=== PATIENT | male | born 1980 | race Two or more races ===

== ENCOUNTER 2021-05-31 15:27 | Outpatient (REF) | payer OTHER, SELFPAY ==
--- NOTE | ~2021-05-31 | XR_ITS ---
EXAMINATION: XR CHEST CLINICAL INFORMATION: Chronic cough. COMPARISON: None TECHNIQUE: 2 views of the chest were obtained. FINDINGS: No acute finding. No infiltrate. No effusion. The cardiac silhouette is within normal limits. There is no infiltrate. The hilar structures do not appear pathologically enlarged. XR/XR chest 2V IMPRESSION: No acute finding.
== END 2021-05-31 15:28 | disposition home or self-care (01) ==
LOC: HO.XRAY 15:27
PROVIDERS: PCP Internal Medicine; Visit Provider Nurse Practitioner Family
DX: R05.3 Chronic cough (principal); Z87.09 Personal history of other diseases of the respiratory system
CPT/HCPCS: 71046

== ENCOUNTER 2022-09-02 07:51 | Outpatient (REF) | payer OTHER, SELFPAY ==
--- NOTE | ~2022-09-02 | XR_ITS ---
EXAMINATION: XR SHOULDER, RIGHT CLINICAL INFORMATION: Pain in right shoulder COMPARISON: None available. TECHNIQUE: AP external rotation, Grashey, scapular Y, and axillary views of the right shoulder. FINDINGS: There is loss of glenohumeral and AC joint space with moderate periarticular spurring. No visible acute fracture, dislocation or subluxation seen. The soft tissues are normal. XR/XR shoulder RT min 2V IMPRESSION: Moderate degenerative arthritic changes right shoulder. No acute fracture or dislocation.
[2022-09-02 08:34] LABS: Hematocrit 44.8 % (42.0-52.0); Hemoglobin 14.5 g/dl (14.0-18.0); Mean Corpuscular HGB Conc 32.4 g/dl (31.0-36.0); Mean Corpuscular Volume 92.6 fL (80.0-98.0); Mean Platelet Volume 9.6 fL (9.4-12.4); Platelet Count 247 X10*3/uL (160-400); Red Blood Count 4.84 X10*6/uL (4.60-5.80); Red Cell Distribution Width 12.1 % (11.0-16.0)
[2022-09-02 09:41] LABS: Alanine Aminotransferase 32 U/L (0-40); Albumin Level 4.4 g/dL (3.5-5.0); Alkaline Phosphatase 80 U/L (39-117); Anion Gap 13 (12-20); Aspartate Amino Transferase 26 U/L (5-37); Bilirubin Total 0.6 mg/dL (0.0-1.0); Blood Urea Nitrogen 20 mg/dL (9-16); Calcium 9.3 mg/dL (8.4-10.2); Carbon Dioxide 24 mmol/L (22-29); Chloride 108 mmol/L (96-108); Cholesterol 141 mg/dL; Estimated Glomerular Filt Rate > 60; Glucose Random 113 mg/dL (60-115); HDL Cholesterol 33 mg/dL; Potassium 4.7 mmol/L (3.3-5.1); Sodium 140 mmol/L (135-145); Total Protein 6.8 g/dL (6.5-8.0)
[2022-09-02 09:42] LABS: TSH reflex Free T4 2.08 uIU/mL (0.32-4.0)
[2022-09-06 15:46] LABS: Triglycerides 73 mg/dL
[2022-09-06 15:47] LABS: LDL Cholesterol Calculated 94 mg/dl
== END 2022-09-02 07:52 | disposition home or self-care (01) ==
LOC: HO.LAB 07:51
PROVIDERS: PCP Nurse Practitioner Family; Visit Provider Nurse Practitioner Family
DX: Z13.220 Encounter for screening for lipoid disorders (principal); Z13.0 Encounter for screening for diseases of the blood and blood-forming organs and certain disorders involving the immune mechanism; Z13.29 Encounter for screening for other suspected endocrine disorder; M25.511 Pain in right shoulder
CPT/HCPCS: 36415; 73030; 80053; 80061; 84443; 85027

== ENCOUNTER → 2022-10-11 08:51 | Outpatient (BNVA) | payer OTHER, SELFPAY | PROVIDERS: PCP Nurse Practitioner Family; Visit Provider Physician Assistant | DX: Z01.818 Encounter for other preprocedural examination (principal); R19.5 Other fecal abnormalities | CPT/HCPCS: 99202 ==

== ENCOUNTER 2022-11-12 15:23 | Emergency (ER) | payer OTHER, SELFPAY ==
[2022-11-12 16:43] VITALS: BP 135/73; PULSE 69; RESP 18; TEMP 36.6; O2SAT 96; BMI 37.8
--- NOTE | 2022-11-12 16:47 | ED.GENADULT ---
HPI - General Adult General Chief complaint: Dental/Oral Stated complaint: Tooth pain right side Time Seen by Provider: 11/12/22 16:47 Source: patient Mode of arrival: ambulatory Limitations: no limitations History of Present Illness HPI narrative: 42 yold male presents to the ED right upper molar pain for the past couple of days. patient denies any facial swelling, neck swelling, chest pain, shortness of breath, fever, chills, or trouble swallowing liquid/food. Related Data Home Medications Medication Instructions Recorded Confirmed ibuprofen 100 mg tablet 200 mg PO QID PRN 08/18/22 08/18/22 Previous Rx's Medication Instructions Recorded albuterol sulfate 90 mcg/actuation 1 inh inhalation Q6H PRN shortness 05/31/21 aerosol inhaler of breath or wheezing #8.5 grams bisacodyl 5 mg tablet,delayed 20 mg PO ONCE colonoscopy prep 1 10/11/22 release (Dulcolax (bisacodyl)) day #4 tabs methylcellulose (laxative) 500 mg 500 mg PO BID #60 tabs 10/11/22 tablet (Citrucel) polyethylene glycol 3350 17 238 g PO ONCE PRN laxative effect 10/11/22 gram/dose oral powder (Miralax) 1 day #238 grams amoxicillin 875 mg-potassium 1 tab PO Q12H 10 days #20 tabs 11/12/22 clavulanate 125 mg tablet naproxen 500 mg tablet 500 mg PO BID PRN pain 7 days #14 11/12/22 tabs Allergies Allergy/AdvReac Type Severity Reaction Status Date / Time No Known Allergies Allergy Verified 10/11/22 09:02 Review of Systems Review of Systems: RIght upper molar cracked tooth Yes all other systems are reviewed and are negative [facility] Past Medical History Medical History (Updated 11/12/22 @ 16:52 by DEACON Elliott) Right shoulder pain Surgical History History of appendectomy Family History Family History Mother Diabetes Father Diabetes H/O heart surgery Social History Social History Household Members: Spouse Housing: Apartment Alcohol intake: current Alcohol intake frequency: a few times a month Alcohol type: beer and hard liquor Patient Tobacco Use Status: Former Tobacco user Quit Date: 2011 Tobacco use type: Cigarette e-Cigarette/Vaping Use: Never Used Second Hand Smoke Exposure: No Advance Directives: No Advance Directives Information Provided: No service: No Current occupational status: employed Current occupational exposures/hazards: No Cognitive needs: No Hearing needs: No Vision needs: No Physical Exam ED Vital Signs: Vital Signs - 24 hr 11/12/22 16:43 Temperature 98 F Pulse Rate 69 Respiratory Rate 18 Blood Pressure 135/73 Pulse Oximetry 96 Oxygen Delivery Method Room Air BMI result Body Mass Index 37.8 Const General: cooperative, healthy appearing, comfortable, no acute distress, well developed, alert, awake and Physically active Orientation/consciousness: oriented to person, oriented to place, oriented to time and patient oriented x3 HENMT Head: Yes normal to inspection, Yes No palpable skull fracture present, Yes normocephalic, Yes atraumatic and No abrasion Ears: hearing grossly normal bilaterally, external ears normal, TM's normal bilaterally, TM normal on the right, TM normal on the left, mastoids normal and no periauricular adenopathy Teeth image: 1. cracked. tenderness on palpation negative for signs of trisums. negative for gum swelling, drooling, or active pus drainage. Throat: Yes posterior oropharynx normal, Yes tonsils normal and Yes uvula midline Eyes General: appearance normal, both eyes and all related structures Neck Neck: Yes normal visual inspection, Yes full ROM, Yes no lymphadenopathy, Yes no meningeal signs, Yes trachea midline, Yes supple, No anterior neck swelling and No tender Chest Chest palpation & inspection: normal inspection of the chest and normal palpation of entire chest wall Resp Effort & Inspection: normal respiratory effort and able to speak in complete sentences Auscultation: clear to auscultation bilaterally Cardio Jugular venous distension: no JVD Heart sounds: S1 normal heart sound present and S2 normal heart sound present GI Inspection: Yes normal to inspection and No abdominal wall ecchymosis Palpation (GI): Soft to palpation, not firm, nontender, no guarding and not rigid General: No CVA tenderness and Yes no CVA tenderness Back/Spine/Pelvis Back: no CVA tenderness, No CVA tenderness and No back tenderness Skin General skin exam: no rashes or lesions noted and elasticity normal Neuro General: oriented to person, oriented to place, oriented to time, patient oriented x3, gait normal, tone normal, moves all extremities, Normal light touch and pain sensation, no meningeal signs, no focal motor deficits, CN's II-XI intact bilaterally and normal sensation to monofilament Extrem General: Yes normal to inspection and Yes full ROM Psych Appearance: grossly normal and well kempt Course Course Course Narrative: RmE: 42 yol male presents to the ED for Right upper molar pain for couple of days. patient denies any facial swelling, neck swelling, drooling, fever, chills, chest pain, or shortness of breath. Patient denies any new trauma. tooth has filling and is cracked Medical Decision Making Medical Decision Making MDM Narrative: 42 yold male presents to the ED for RIght upper molar cracked tooth that is painful. Patient denies any facial swelling, neck swelling, chest pain, shortness of breath, fever, chills, or recent trauma. Patient discharged with antibiotics and will follow up with Dentists Differential Diagnosis Differential Diagnoses: The differential diagnosis associated with the presentation includes (tooth infection, dental abscess, ludgwig agina, retropharyngeal abscess) Admission/Observation Consideration of admission/observation: Escalation of care including admission/observation considered Tests considered The following testing was considered but not selected: CT neck Prescription Management I considered prescription management with: Pain Medication and Antibiotic Discharge Plan Discharge Clinical Impression: Toothache, Cracked tooth Patient Disposition: Home, Self-Care Instructions: Toothache (ED) Additional Instructions: Regrese al servicio de urgencias de inmediato por cualquier hinchaz?n de la becky/ancelmo, babeo, cambio de voz, incapacidad para tragar l?quidos/alimentos s?lidos, fiebre, escalofr?os, dolor en el pecho, dificultad para respirar o cualquier otro s?ntoma preocupante. por favor kostas un seguimiento con los dentistas y el PCP. Prescriptions: New amoxicillin-pot clavulanate 875-125 mg tablet 1 tab PO Q12H 10 Days Qty: 20 0RF naproxen 500 mg tablet 500 mg PO BID PRN (Reason: pain) 7 Days Qty: 14 0RF No Action albuterol sulfate 90 mcg/actuation HFA aerosol inhaler 1 inh inhalation Q6H PRN (Reason: shortness of breath or wheezing) Qty: 8.5 0RF Tenivac (PF) 5 Lf unit- 2 Lf unit/0.5mL suspension 0.5 ml IM ONCE Qty: 0.5 0RF ibuprofen 100 mg tablet 200 mg PO QID PRN bisacodyl [Dulcolax (bisacodyl)] 5 mg tablet,delayed release (DR/EC) 20 mg PO ONCE 1 Days Qty: 4 0RF Rx Instructions: Take 4 tablets by mouth at 12:00pm the day before your procedure. polyethylene glycol 3350 [Miralax] 17 gram/dose powder 238 g PO ONCE PRN (Reason: laxative effect) 1 Days Qty: 238 0RF Rx Instructions: Take as directed by mouth the day before your procedure. Citrucel 500 mg tablet 500 mg PO BID Qty: 60 5RF Stand Alone Forms: Work/School Release Interventions: ED Discharge Assessment Last Done: 11/12/22 17:01 Discharge Date/Time: 11/12/22 17:01 Print Language: Beninese
== END 2022-11-12 17:01 | disposition home or self-care (01) ==
PROVIDERS: Emergency Provider Internal Medicine; PCP Internal Medicine
DX: K03.81 Cracked tooth (principal); K08.89 Other specified disorders of teeth and supporting structures; Z87.891 Personal history of nicotine dependence; Z79.899 Other long term (current) drug therapy
CPT/HCPCS: 99282

== ENCOUNTER 2023-01-15 11:15 | Outpatient (AMB) | payer OTHER, SELFPAY ==
[2023-01-15 12:01] VITALS: BP 120/60; PULSE 80; TEMP 36.3; O2SAT 97; BMI 40.6
--- NOTE | 2023-01-15 12:01 | AM.OFFWIN_ITS ---
Intake Vital Signs 01/15/23 12:01 Height 5 ft 4 in Weight 236 lb 6 oz BMI 40.6 BP 120/60 Blood Pressure Location Rt brachial Position Sitting Pulse 80 Pulse Source Pulse Oximeter Temp 97.4 F Temp Source Temporal Artery Scan Pulse Oximetry (%) 97 Oxygen Delivery Method Room Air Intake Visit Reasons: EST/right eye swelling Intake Note: Pt is here c/o right eye swelling for the last 7 days. Pt states when he initially wakes up it is hard for him to open his eye. Pt also states he has discharge coming from his right eye. Patient Tobacco Use Status: Former Tobacco user Quit Date: 2011 Allergies No Known Allergies Allergy (Verified 01/19/23 16:10) Medication List - Last Reconciled 01/19/23 by Mich Schwartz MD albuterol sulfate 90 mcg/actuation 1 inh inhalation Q6H PRN amoxicillin-pot clavulanate 875-125 mg 1 tab PO Q12H 10 days bisacodyl (Dulcolax (bisacodyl)) 20 mg (4 x 5 mg) PO ONCE 1 day erythromycin 0.5 inches ophthalmic (eye) TID ibuprofen 200 mg PO QID PRN methylcellulose (laxative) (Citrucel) 500 mg PO BID naproxen 500 mg PO BID PRN 14 days polyethylene glycol 3350 (Miralax) 238 grams PO ONCE PRN 1 day Do you need a note to return to daycare/school/sports/work: Yes HPI EST/right eye swelling HPI Details 42-year-old male presents to the office for a sick visit. Patient is complaining of redness and irritation in the right. Mucoid discharge present. No fevers or chills. [facility] Medical History (Updated 01/19/23 @ 16:13 by Mich Schwartz MD) Right shoulder pain Surgical History History of appendectomy Family History Mother Diabetes Father Diabetes H/O heart surgery Social History Household Members: Spouse Housing: Apartment Alcohol intake: current Alcohol intake frequency: a few times a month Alcohol type: beer and hard liquor Patient Tobacco Use Status: Former Tobacco user Quit Date: 2011 Tobacco use type: Cigarette e-Cigarette/Vaping Use: Never Used Second Hand Smoke Exposure: No service: No Current occupational status: employed Current occupational exposures/hazards: No Cognitive needs: No Hearing needs: No Vision needs: No Physical Exam Vital Signs: Last Vital Signs Temp 97.4 F 01/15/23 12:01 Pulse 80 01/15/23 12:01 BP 120/60 01/15/23 12:01 Pulse Ox 97 01/15/23 12:01 Oxygen Delivery Method Room Air 01/15/23 12:01 BMI result Body Mass Index 40.6 Const General: cooperative and healthy appearing Nutritional Appearance: well nourished Orientation/consciousness: patient oriented x3 Limitations: no limitations HEENT Head: Yes normal to inspection Eyes Other: Right eye: Conjunctival congestion. Corneas clear. General: appearance normal, both eyes and all related structures Neck Neck: Yes normal visual inspection Chest Chest palpation & inspection: normal palpation of entire chest wall Resp Effort & Inspection: normal respiratory effort Neuro General: patient oriented x3 Assessment & Plan Assessment & Plan (1) Conjunctivitis, right eye: Code(s): H10.9 - Unspecified conjunctivitis Qualifiers: Conjunctivitis type: acute Acute conjunctivitis type: unspecified Q ualified Code(s): H10.31 - Unspecified acute conjunctivitis, right eye Plan: Antibiotic ointment prescribed. If symptoms do not improve to follow-up here. Medications: New erythromycin 0.5 inches ophthalmic (eye) TID 1 g 0RF Changed From naproxen 500 mg PO BID 7 days PRN 14 tabs 0RF pain To naproxen 500 mg PO BID 14 days PRN 28 tabs 0RF pain Coding Level of Care Code Est Pt Level 3 (28928) Diagnoses Acute conjunctivitis of right eye, unspecified acute conjunctivitis type H10.31 Conjunctivitis type: acute Acute conjunctivitis type: unspecified
== END 2023-01-15 12:26 | disposition home or self-care (01) ==
PROVIDERS: PCP Internal Medicine; Visit Provider Internal Medicine
DX: H10.31 Unspecified acute conjunctivitis, right eye (principal)
CPT/HCPCS: 99213

== ENCOUNTER 2023-01-30 15:42 | Outpatient (AMB) | payer OTHER, SELFPAY ==
[2023-01-30 15:43] VITALS: BP 122/80; PULSE 73; O2SAT 97; BMI 40.5
--- NOTE | 2023-01-30 15:43 | MHC.PC.OV ---
Vital Signs 01/30/23 15:43 Height 5 ft 4 in Weight 236 lb BMI 40.5 BP 122/80 Blood Pressure Location Lt brachial Position Sitting Pulse 73 Pulse Source Pulse Oximeter Temp Source Skin Pulse Oximetry (%) 97 Oxygen Delivery Method Room Air Intake Visit Reasons: shoulder pain Intake Note: pt states jail right shoulder pain and numbness radiating down towards arm Surgical Oncologist Required: No Allergies No Known Allergies Allergy (Verified 01/30/23 15:51) Medication List - Last Reconciled 01/30/23 by STEVE Bangura albuterol sulfate 90 mcg/actuation 1 inh inhalation Q6H PRN bisacodyl (Dulcolax (bisacodyl)) 20 mg (4 x 5 mg) PO ONCE 1 day erythromycin 0.5 inches ophthalmic (eye) TID ibuprofen 200 mg PO QID PRN methylcellulose (laxative) (Citrucel) 500 mg PO BID naproxen 500 mg PO BID PRN 14 days polyethylene glycol 3350 (Miralax) 238 grams PO ONCE PRN 1 day Tobacco use date assessed: 01/30/23 Dental Screening Dental Screen Date: 01/30/23 Did you have a dental visit in the last 12 months?: Yes Did you have a dental problem in the last 6 months where you did not have access to dental care?: No Was dental information given to patient?: Patient has dentist HPI shoulder pain HPI Details Patient is a 42-year-old male who presents today with right shoulder pain since age 23[address] Dumas. Patient did have right shoulder x-ray done which showed moderate degenerative changes. Patient reports that right shoulder pain radiate down to his elbow area with intermittent numbness in his right arm, reports that pain is intermittent as well. Pain is worse with right arm movement and when sleeping on the right side. He reports naproxen with mild helping pain. Patient works at [employer] and he moves heavy things. In addition, patient reports right hand eczema and he was encouraged to try uhir-ygy-beyysip cortisone cream as needed. 09/2022 XR/XR shoulder RT min 2V IMPRESSION: Moderate degenerative arthritic changes right shoulder. No acute fracture or dislocation. [facility] Medical History Right shoulder pain Surgical History History of appendectomy Family History Mother Diabetes Father Diabetes H/O heart surgery Social History Household Members: Spouse Housing: Apartment Alcohol intake: current Alcohol intake frequency: a few times a month Alcohol type: beer and hard liquor Patient Tobacco Use Status: Former Tobacco user Quit Date: 2011 Tobacco use type: Cigarette e-Cigarette/Vaping Use: Never Used Second Hand Smoke Exposure: No service: No Current occupational status: employed Current occupational exposures/hazards: No Cognitive needs: No Hearing needs: No Vision needs: No Questionnaire Thrive Questionnaire Date Thrive assessed: 08/18/22 AUDIT C Alcohol Use Questionnaire (AUDIT-C) 1. How often do you have a drink containing alcohol?: Monthly or less 2. How many drinks containing alcohol do you have on a typical day when you are drinking?: 1 or 2 3. How often do you have six or more drinks on one occasion?: Never Total Score: 1 Score Reviewed/Action Taken: No MARU-7 AMB Questionnaire MARU-7 Date MARU - 7 assessed: 08/18/22 Source: Developed by Drs. Emmett Jasso, Kia Goyal, Ruslan Edmonds and colleagues, with an educational dean from [employer]. Review of Systems Const Denies body aches, Denies chills, Denies fever(s) and Denies headache(s) ENT Denies dizziness, Denies otalgia, Denies headache(s), Denies nasal discharge, Denies sinus pain and Denies sore throat Card Denies chest pain, Denies edema, Denies lightheadedness and Denies dyspnea Resp Denies dyspnea and Denies wheezing GI Denies abdominal pain Denies dysuria Musc Reports as per HPI, Denies myalgias, Reports arthralgias, Reports numbness and Denies tingling Skin/Breast Denies rash Neuro Denies dizziness, Denies headache(s), Reports numbness and Denies tingling Aller/Immun Denies wheezing Physical exam (Primary Care) Vital Signs: Last Vital Signs Pulse 73 01/30/23 15:43 BP 122/80 01/30/23 15:43 Pulse Ox 97 01/30/23 15:43 Oxygen Delivery Method Room Air 01/30/23 15:43 BMI result Body Mass Index 40.5 Tobacco/Smoking Status: Tobacco use Status Tobacco use date assessed 01/30/23 01/30/23 15:50 Patient Tobacco Use Status Former Tobacco user 01/30/23 15:50 Tobacco use type Cigarette 01/30/23 15:50 e-Cigarette/Vaping Use Never Used 01/30/23 15:50 Thrive Assessment: Date of Thrive Assessment Date Thrive assessed 08/18/22 01/30/23 15:50 Const General: cooperative and no acute distress Orientation/consciousness: patient oriented x3 HENMT Head: Yes normocephalic and Yes atraumatic Throat: Yes posterior oropharynx normal Eyes General: appearance normal, both eyes and all related structures Neck Neck: Yes normal visual inspection and Yes full ROM Resp Effort & Inspection: normal respiratory effort and able to speak in complete sentences Auscultation: clear to auscultation bilaterally, no crackles, no rales, no rhonchi and no wheezes Cardio Rate: regular rate Rhythm: regular rhythm Heart sounds: S1 normal heart sound present and S2 normal heart sound present GI Auscultation: normal bowel sounds Skin General skin exam: no rashes or lesions noted Neuro General: patient oriented x3 Gait exam (Neuro): Normal gait present Extrem General: No edema Right upper extremity: shoulder/upper arm Details: abnormal ROM (Pain with range of motion); no tenderness, no swelling, no crepitus and no deformity Assessment and Plan Assessment & Plan (1) Right shoulder pain: Code(s): M25.511 - Pain in right shoulder Plan: Right shoulder with arthritis. Patient is to continue naproxen b.i.d. p.r.n.. Will provide patient with lidocaine patch daily p.r.n.. Will refer to physical therapy. Also refer to Orthopedics for an evaluation and treatment. Patient agreed with the plan. Orders: Orders PT Evaluation and Treatment Today M25.511 - Pain in right shoulder Referrals Orthopedics Referral M25.511 - Pain in right shoulder Medications: New lidocaine 4% (Aspercreme (lidocaine)) 1 patch topical DAILY PRN 30 ea 0RF pain M25.511 - Pain in right shoulder Coding Level of Care Code Est Pt Level 3 (42806) Diagnoses Right shoulder pain M25.661
== END 2023-01-30 16:02 | disposition home or self-care (01) ==
PROVIDERS: PCP Internal Medicine; Visit Provider Nurse Practitioner Family
DX: M25.511 Pain in right shoulder (principal)
CPT/HCPCS: 99213

== ENCOUNTER 2023-02-26 13:25 | Outpatient (AMB) | payer OTHER, SELFPAY ==
--- NOTE | 2023-02-26 13:39 | A.OFFVIS_ITS ---
Intake Vital Signs 02/26/23 13:45 Height 5 ft 4 in Weight 230 lb BMI 39.5 Intake Visit Reasons: Research Anthropologist- Pain in right shoulder Intake Note: Surjit 42 yr old right hand dominant male presents today for a new patient visit for his right shoulder. States pain presents for the last 10 yrs s/ getting detained. States he has had pain since then. States he has never been seen for his right shoulder until recently. Reports pain is mainly on anterior aspect of shoulder, radiates to his bicep and is painful to lift arm up. 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 Denies therapy or injection. Allergies No Known Allergies Allergy (Verified 02/26/23 13:43) HPI Research Anthropologist- Pain in right shoulder HPI Details 42-year-old right hand dominant male who presents to the office today for evaluation of right shoulder pain s/p getting detained for about 10 years. He states he has pain in the anterior aspect of his shoulder which radiates to his bicep. His pain is aggravated with lifting his arm up and at night. He denies any therapy or injection. 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 He does not have a history of diabetes. 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 Current occupational exposures/hazards: No Cognitive needs: No Hearing needs: No Vision needs: No Review of Systems Const All systems reviewed & are unremarkable except as noted in HPI and below Physical Exam Vital Signs: BMI result Body Mass Index 39.5 Const General: cooperative, healthy appearing, comfortable, no acute distress, well developed and alert Orientation/consciousness: patient oriented x3 HEENT Head: Yes normal to inspection, Yes normocephalic and Yes atraumatic Eyes General: appearance normal, both eyes and all related structures Resp Effort & Inspection: normal respiratory effort and able to speak in complete sentences Cardio Rate: regular rate Peripheral pulses: Peripheral pulses 2+ throughout GI Palpation (GI): Soft to palpation Skin Lesions: no lesions Rashes: no rashes Neuro General: patient oriented x3 Extrem Other: Right shoulder normal to inspection. Tenderness over the bicipital groove and along the deltoid region of the shoulder. Forward flexion to 175, external rotation to 90, internal rotation to S1. 5/5 RTC strength. Positive Brock and Levy's. NVI. Office Procedures Joint Injection/Drain Joint Injection/Drain Primary Site: right shoulder Prep: site was prepped using aseptic technique, ethochloride spray was applied and injection warnings given Injected: 80 mg of, DepoMedrol, with 8 mL of, 1% plain lidocaine and in the subcromial space Approach Used: posterolateral Procedure: The patient tolerated the procedure well and there was some relief with the local anesthesia Coding 70686 - Glenohumeral/Tronchanteric Bursa/Intraarticular Procedure code (CPT) selection complete Results Reviewed Results Reviewed: 02/26/23 14:17 Lidocaine HCl 2 % MPF [Xylocaine 2 % MPF] 5 ml .ROUTE .STK-MED ONE 02/26/23 14:18 methylPREDNISolone acetate [DEPO-MedroL] 80 mg .ROUTE .STK-MED ONE Assessment & Plan Assessment & Plan (1) Osteoarthritis of right shoulder: Code(s): M19.011 - Primary osteoarthritis, right shoulder Qualifiers: Osteoarthritis type: primary Qualified Code(s): M19.011 - Primary osteoarthritis, right shoulder (2) Tendinitis of right rotator cuff: Code(s): M75.81 - Other shoulder lesions, right shoulder Plan We discussed options today which include steroid injection. They did consent to move forward with the right shoulder injection, which was tolerated well. I recommended rest, ice and elevation and OTC anti-inflammatories PRN for discomfort. He was also given a course of physical therapy in the office today. If symptoms persist or worsens over the next 6-8 weeks, patient will contact the office, otherwise follow-up as needed. Orders: Orders PT Evaluation and Treatment Today M19.011 - Primary osteoarthritis, right shoulder, M75.81 - Other shoulder lesions, right shoulder Patient Instructions: Scribed for Josiah Quinn PA-C, by Harvinder Edmondson certified medical coding specialist, on 02/26/2023 at 1:45 PM EST. Josiah Buck PA-C, have personally reviewed and agree with the information entered by the scribe. Coding Level of Care Code New Pt Level 3 (96894) Diagnoses Primary osteoarthritis of right shoulder M19.011 Osteoarthritis type: primary Tendinitis of right rotator cuff M75.81 CPT Codes Coding - Joint 7: 17616 - Glenohumeral/Tronchanteric Bursa/Intraarticular ([id number])
[2023-02-26 13:45] VITALS: BMI 39.5
== END 2023-02-26 14:34 | disposition home or self-care (01) ==
PROVIDERS: PCP Internal Medicine; Visit Provider Physician Assistant
DX: M19.011 Primary osteoarthritis, right shoulder (principal); M75.81 Other shoulder lesions, right shoulder
CPT/HCPCS: 20610; 99203

== ENCOUNTER → 2023-02-26 13:25 | Outpatient (BNVA) | payer OTHER, SELFPAY | PROVIDERS: PCP Internal Medicine; Visit Provider Physician Assistant | DX: M19.011 Primary osteoarthritis, right shoulder (principal); M75.81 Other shoulder lesions, right shoulder | CPT/HCPCS: 20610; 99202; J1040 ==

== ENCOUNTER 2023-04-11 13:20 | Outpatient (AMB) | payer OTHER, SELFPAY ==
--- NOTE | 2023-04-11 13:30 | MHC.OFFVIS ---
Intake Intake Visit Reasons: ov- right shoulder pain Intake Note: Surjit 42 yr old right hand dominant male presents today for a new patient visit for his right shoulder, last injection 02/26/23. Patient reports his injection gave him 2 weeks of relief. PT hasn't contacted him. Allergies No Known Allergies Allergy (Verified 04/11/23 13:35) Medication List - Last Reconciled 04/11/23 by Josiah Quinn PA-C albuterol sulfate 90 mcg/actuation 1 inh inhalation Q6H PRN bisacodyl (Dulcolax (bisacodyl)) 20 mg (4 x 5 mg) PO ONCE 1 day erythromycin 0.5 inches ophthalmic (eye) TID ibuprofen 200 mg PO QID PRN lidocaine 4% (Aspercreme (lidocaine)) 1 patch topical DAILY PRN methylcellulose (laxative) (Citrucel) 500 mg PO BID naproxen 500 mg PO BID PRN 14 days polyethylene glycol 3350 (Miralax) 238 grams PO ONCE PRN 1 day HPI ov- right shoulder pain HPI Details 43-year-old right hand dominant male who returns to the office today for a follow-up of right shoulder pain. He states he has pain and swelling in his shoulder which is aggravated with lifting. He also c/o his shoulder locking while sleeping and pain in his elbow with making a fist. He had his last injection on 02/26/23 which provided him relief for about 2 weeks. He has not yet started with physical therapy. 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 Current occupational exposures/hazards: No Cognitive needs: No Hearing needs: No Vision needs: No Review of Systems Const All systems reviewed & are unremarkable except as noted in HPI and below Physical Exam Const General: cooperative, healthy appearing, comfortable, no acute distress, well developed and alert Orientation/consciousness: patient oriented x3 HEENT Head: Yes normal to inspection, Yes normocephalic and Yes atraumatic Eyes General: appearance normal, both eyes and all related structures Resp Effort & Inspection: normal respiratory effort and able to speak in complete sentences Cardio Rate: regular rate Peripheral pulses: Peripheral pulses 2+ throughout GI Palpation (GI): Soft to palpation Skin Lesions: no lesions Rashes: no rashes Neuro General: patient oriented x3 Extrem Other: Right shoulder normal to inspection. Tenderness over the bicipital groove and along the deltoid region of the shoulder. Forward flexion to 100, external rotation to 90, internal rotation to S1. Mild pain with RTC strength testing. Positive Brock and Crouse's. NVI. Assessment & Plan Assessment & Plan (1) Tendinitis of right rotator cuff: Code(s): M75.81 - Other shoulder lesions, right shoulder (2) Osteoarthritis of right shoulder: Code(s): M19.011 - Primary osteoarthritis, right shoulder Qualifiers: Osteoarthritis type: primary Qualified Code(s): M19.011 - Primary osteoarthritis, right shoulder Plan An MRI of the right shoulder has been ordered to further evaluate integrity of the RTC. An updated order for physical therapy has also placed in the office today. I stressed the importance of contacting the office if he does not hear from them. He will follow-up once the scan is complete. Orders: Orders MR shoulder RT wo con Today M19.011 - Primary osteoarthritis, right shoulder, M75.81 - Other shoulder lesions, right shoulder Patient Instructions: Scribed for Josiah Quinn PA-C, by Harvinder Edmondson medical lab tech instructor, on 04/11/2023 at 1:45 PM EST. Josiah Bcuk PA-C, have personally reviewed and agree with the information entered by the scribe. Coding Level of Care Code Est Pt Level 3 (75252) Diagnoses Tendinitis of right rotator cuff M75.81 Primary osteoarthritis of right shoulder M19.011 Osteoarthritis type: primary
== END 2023-04-11 13:55 | disposition home or self-care (01) ==
PROVIDERS: PCP Internal Medicine; Visit Provider Physician Assistant
DX: M75.81 Other shoulder lesions, right shoulder (principal); M19.011 Primary osteoarthritis, right shoulder
CPT/HCPCS: 99213

== ENCOUNTER → 2023-04-11 13:20 | Outpatient (BNVA) | payer OTHER, SELFPAY | PROVIDERS: PCP Internal Medicine; Visit Provider Physician Assistant | DX: M75.81 Other shoulder lesions, right shoulder (principal); M19.011 Primary osteoarthritis, right shoulder | CPT/HCPCS: 99212 ==

== ENCOUNTER 2023-05-14 12:02 | Day surgery (SDC) | payer OTHER, SELFPAY ==
[2023-05-14 13:27] VITALS: BP 129/76; PULSE 56; RESP 16; TEMP 36.3; O2SAT 97; BMI 39.5
--- NOTE | 2023-05-14 14:09 | HO.ANESPROP2 ---
[facility] Active Problems Active Problems: All Active Problems (Updated 02/26/23 @ 14:54 by Josiah Quinn PA-C) Tendinitis of right rotator cuff (Acute) Osteoarthritis of right shoulder (Acute) Conjunctivitis, right eye (Acute) Change in consistency of stool (Acute) Encounter for screening colonoscopy (Acute) Right shoulder pain (Acute) History of asthma (Acute) Chronic cough (Acute) Physical exam (Acute) Past Medical History Medical History Right shoulder pain Family History Family History Mother Diabetes Father Diabetes H/O heart surgery Surgical History Surgical History History of appendectomy History of Problems with Anesthesia: No Social History Social History Household Members: Spouse Housing: Apartment Alcohol intake: current Alcohol intake frequency: a few times a month Alcohol type: beer and hard liquor Patient Tobacco Use Status: Former Tobacco user Quit Date: 2011 Tobacco use type: Cigarette e-Cigarette/Vaping Use: Never Used Second Hand Smoke Exposure: No Use of substances other than those prescribed or required for medical reasons: No Are you DNR?: No Advance Directives: No Advance Directives Information Provided: Yes service: No Current occupational status: employed 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 Current occupational exposures/hazards: No Cognitive needs: No Hearing needs: No Vision needs: No Meds Allergies Allergy/AdvReac Type Severity Reaction Status Date / Time No Known Allergies Allergy Verified 04/11/23 13:35 Home Medications Medication Instructions Recorded Confirmed Last Taken Type ibuprofen 100 mg tablet 200 mg PO QID PRN Pain, Moderate 08/18/22 04/11/23 05/07/23 History Exam Height,Weight and Vital Signs: Height 5 ft 4 in Weight 104.326 kg Last Vital Signs Temp 97.4 F 05/14/23 13:27 Pulse 56 05/14/23 13:27 Resp 16 05/14/23 13:27 BP 129/76 05/14/23 13:27 Pulse Ox 97 05/14/23 13:27 O2 Del Method Room Air 05/14/23 13:27 Airway Mallampati Class: III TM Dist: >3cm Neck ROM: Full Loose/Missing/Broken Teeth: No Heart: RRR Lungs: CTA Assessment and Plan Assessment Anesthesia Assessment: Anesthesia Plan Discussed and Chart Reviewed Final Anesthetic Review History of Problems with Anesthesia: No NPO: Yes ASA Class: II Final Preanesthetic Review: Meds/Allgs Chart Reviewed, Consent Obtained/Reviewed and Anes Risks/Benef Reviewed Patient Risk: Low Procedure Risk: Low Anesthetic Plan Anesthetic Plan: MAC: Disposition: Standard PACU
--- NOTE | 2023-05-14 14:23 | MHC.SHP ---
Pre-Procedural Eval Section A Date of Service: 05/14/23 The patient is an INPATIENT: No The History & Physical has been completed within 30 days and I have reviewed it.: No Section B Chief Complaint: Colon cancer screening Relevant Family History (Specify if Yes): No Relevant Social History: Tobacco Use (Former smoker) Present Medications: see Short Stay Collaborative assessment Medical History: Significant History (hx of asthma, OA rt shoulder) History of Previous Operations: Relevant previous surgery/procedure and date(s) (History of appendectomy) Allergies: Allergies Allergy/AdvReac Type Severity Reaction Status Date / Time No Known Allergies Allergy Verified 04/11/23 13:35 Review of Systems Sugical H&P ROS: Negative: Constitution, Cardiovascular, Respiratory and Gastrointestinal Exam Surgical H&P Exam: Normal: Heart, Normal: Lungs, Normal: Extremities and Normal: Abdomen Plan Diagnosis/Plan: Unchanged I have reviewed the history and physical and performed a pertinent physical examination on my patient. No changes have occurred unless specified. Time Spent With Patient Time: Total time managing care of this patient today ____ minutes.
--- NOTE | 2023-05-14 15:04 | W.PM.OPN ---
Operative Note Operative Note Date of Service: 05/14/23 Narrative: COLONOSCOPY TILL CECUM WITH BIOPSIES AND SNARE POLYPECTOMY Pre-op diagnosis: Colon cancer screening Post-op diagnosis:? Colon polyps, diverticulosis, hemorrhoids Endoscopist:? Kae Gerardo MD Anesthesia:?MAC Consent: Indications for the procedure and potential complications of bleeding, perforation, reaction to medications and missed diagnosis were discussed with the patient with the help of an [facility] [place] educational sign language interpreter and informed consent was obtained. Instrument: Olympus PCF H 190 L variable stiffness pediatric colonoscope Monitoring: Vital signs and clinical assessment, intermittent blood pressure monitoring, continuous EKG monitoring, Pulse oximetry and Carbon Dioxide monitoring were done throughout the procedure. Please see anesthesia flowsheet. Colon withdrawl time was 25 minutes. Procedure: The patient was placed in the left lateral decubitis position and pre-procedure medications were administered. After a digital rectal examination of the ano-rectum, the video colonoscope was inserted into the rectum and advanced through the colon to the cecum. The colonoscope was slowly withdrawn in a retrograde panoramic fashion and the colon mucosa was carefully examined including a retroflexed view of the rectum. Findings and interventions are described below. Procedure Difficulty: Without difficulty Findings: Terminal Ileum: Not evaluated Cecum: Normal Ascending Colon: A 3-4 mm sessile polyp - removed with a cold biopsy Transverse Colon: Normal Descending Colon: Moderate diverticulosis Sigmoid Colon: Two 10-12 mm sessile polyps in the distal sigmoid colon - removed with a hot snare. Moderate diverticulosis Rectum: Normal Ano-rectum: Small internal hemorrhoids and hypertrophied anal papillae Colon preparation: Good after copious irrigation [place] Bowel Preparation Scale Right colon: 2 Transverse colon: 2 Left colon: 2 (0 = Unprepared colon segment with mucosa not seen due to solid stool that cannot be cleared. 1 = Portion of mucosa of the colon segment seen, but other areas of the colon segment not well seen due to staining, residual stool and/or opaque liquid. 2 = Minor amount of residual staining, small fragments of stool and/or opaque liquid, but mucosa of colon segment seen well. 3 = Entire mucosa of colon segment seen well with no residual staining, small fragments of stool or opaque liquid) Impression and Post Procedure Diagnosis: Colonoscopy Findings: One small and two medium sized polyps removed Random biopsies were obtained to check for microscopic colitis Moderate diverticulosis seen in the left colon Moderate hemorrhoids on retroflexed exam. Plan: Await pathology results Patient has an appointment on 06/18/23 in the GI Clinic with DEACON Norman. Repeat Colonoscopy interval based on path results - in 3-5 years if polyps are adenomatous and 10 years if polyps are hyperplastic. Colon polyps and diverticulosis handouts were given in the discharge area
[2023-05-14 16:09] VITALS: BP 101/56; PULSE 65; RESP 16; TEMP 36.1; O2SAT 96
[2023-05-14 16:24] VITALS: BP 105/58; PULSE 66; RESP 16; O2SAT 97
[2023-05-14 16:39] VITALS: BP 102/66; PULSE 58; RESP 18; TEMP 36.1; O2SAT 99
== END 2023-05-14 16:53 | disposition home or self-care (01) ==
PROVIDERS: PCP Internal Medicine; Visit Provider Internal Medicine Gastroenterology
PROC: 0DJD8ZZ Inspection of Lower Intestinal Tract, Via Natural or Artificial Opening Endoscopic (ICD-10-PCS; CPT 45378; principal; 2023-05-14 15:20)
DX: Z12.11 Encounter for screening for malignant neoplasm of colon (principal); K63.5 Polyp of colon; K57.30 Diverticulosis of large intestine without perforation or abscess without bleeding; K64.8 Other hemorrhoids; K62.89 Other specified diseases of anus and rectum; M19.011 Primary osteoarthritis, right shoulder; Z87.891 Personal history of nicotine dependence; Z79.1 Long term (current) use of non-steroidal anti-inflammatories (NSAID)
CPT/HCPCS: 45385; 45380; 88305; J2704

== ENCOUNTER → 2023-05-14 12:02 | Outpatient (BNV) | payer OTHER, SELFPAY | PROVIDERS: PCP Internal Medicine; Visit Provider Internal Medicine Gastroenterology | DX: Z12.11 Encounter for screening for malignant neoplasm of colon (principal); D12.2 Benign neoplasm of ascending colon; D12.5 Benign neoplasm of sigmoid colon; K64.8 Other hemorrhoids | CPT/HCPCS: 45380; 45385 ==

== ENCOUNTER 2023-05-30 14:00 | Outpatient (RCR) | payer OTHER, SELFPAY ==
--- NOTE | 2023-07-18 12:13 | MHC.PT.DC ---
[facility] [place] [facility] [place] [facility] [place] [facility] [address] Harry Lynn [address] [phone] F: [phone] F: [phone] F: [phone] F: [phone] Physical Therapy Discharge Report Diagnosis: RIGHT SHOULDER PAIN (KP) Date of Surgery: Date of Evaluation: 05/22/23 Date of Discharge: 06/18/23 Treatments to Date: 4 Cancellations to Date: 1 No Shows to Date: 2 Discharge Status: Patient Elected to Stop Visit Non-compliance Discharge Summary: CANCELLED/NO SHOWED FOR LAST 3 VISITS, ATTEMPTS TO REACH Pt BY PHONE WERE UNSUCESSFUL AND CURRENT STATUS IS UNKNOWN. HE IS BEING DCed FOR NON-COMPLIANCE Electronically signed by: SOSA HENRIQUEZ PT DPT Please sign and return to therapist. Thank you for your referral.
== END 2023-07-18 12:13 | disposition home or self-care (01) ==
LOC: HO.PT 14:00
PROVIDERS: PCP Internal Medicine; Visit Provider Physician Assistant
DX: M19.011 Primary osteoarthritis, right shoulder (principal); M75.81 Other shoulder lesions, right shoulder
CPT/HCPCS: 97110; 97140; 97161

== ENCOUNTER 2023-06-06 09:09 | Outpatient (REF) | payer OTHER, SELFPAY ==
--- NOTE | ~2023-06-06 | XR_ITS ---
EXAMINATION: XR ORBITS CLINICAL INFORMATION: Pre-MRI screening COMPARISON: None available. TECHNIQUE: 3 views of the orbits were obtained. FINDINGS: There is no fracture. No bone, joint or soft tissue abnormality is demonstrated. XR/XR pre mri screening IMPRESSION: Unremarkable examination. No radiopaque foreign body such as metal is seen in the region of the orbits.
== END 2023-06-06 09:10 | disposition home or self-care (01) ==
LOC: HO.XRAY 09:09
PROVIDERS: PCP Internal Medicine; Referring Provider Physician Assistant; Visit Provider Internal Medicine
DX: Z13.89 Encounter for screening for other disorder (principal)

== ENCOUNTER 2023-06-07 16:25 | Outpatient (REF) | payer OTHER, SELFPAY ==
--- NOTE | ~2023-06-07 | MR_ITS ---
EXAMINATION: MR SHOULDER WITHOUT CONTRAST, RIGHT CLINICAL INFORMATION: Right shoulder pain and swelling. Limited range of motion. COMPARISON: Right shoulder radiographs dated 09/02/2022. TECHNIQUE: MRI of the shoulder without contrast was performed on a high-field scanner. FINDINGS: ROTATOR CUFF: Mild supraspinatus tendinosis with anterior articular surface fraying/partial tearing measuring 0.9 x 0.5 cm (AP by ML). Mild subscapularis tendinosis with distal articular surface partial tearing measuring 1.0 cm in ML dimension. No full-thickness rotator cuff tendon tear. Moderate teres minor muscle atrophy with mild edema. BICEPS: Intact. CORACOACROMIAL ARCH: The undersurface of the acromion is flat with no subacromial spur. Moderate acromioclavicular osteoarthritis and small joint effusion. LABRUM/CAPSULE: Diffuse attenuation and irregularity of the superior, posterosuperior, posterior, posteroinferior, and inferior labrum, consistent with complex degenerative tearing. GLENOHUMERAL JOINT/MARROW: Chronic posterior subluxation of the humeral head. Broad areas of full-thickness humeral head and glenoid full-thickness articular cartilage loss with posterosuperior humeral head subchondral cystic change. Large marginal osteophytes. Small joint effusion with synovitis. Loose bodies within the subcoracoid recess measuring up to 1.6 cm. MR/MR shoulder RT wo con IMPRESSION: 1. Mild supraspinatus tendinosis with anterior articular surface fraying/partial tearing measuring 0.9 x 0.5 cm. Mild subscapularis tendinosis with distal articular surface partial tearing measuring 1.0 cm in ML dimension. No full-thickness rotator cuff tendon tear. Moderate teres minor muscle atrophy with mild edema. 2. Moderate acromioclavicular osteoarthritis and small joint effusion. 3. Severe glenohumeral osteoarthritis with chronic posterior subluxation of the humeral head. Small joint effusion with synovitis. Loose bodies within the subcoracoid recess measuring up to 1.6 cm. 4. Diffuse complex degenerative tearing of the glenoid labrum.
== END 2023-06-07 16:26 | disposition home or self-care (01) ==
LOC: HO.MRI 16:25
PROVIDERS: PCP Internal Medicine; Visit Provider Physician Assistant
DX: M75.81 Other shoulder lesions, right shoulder (principal); M19.011 Primary osteoarthritis, right shoulder
CPT/HCPCS: 73221

== ENCOUNTER 2023-06-27 12:45 | Outpatient (AMB) | payer OTHER, SELFPAY ==
--- NOTE | 2023-06-27 12:57 | MHC.PC.OV ---
Vital Signs 06/27/23 12:58 Height 5 ft 4 in Weight 246 lb BMI 42.2 BP 130/82 Blood Pressure Location Lt brachial Position Sitting Intake Visit Reasons: RUQ Swollen Intake Note: Patient here RUQ swelling Electronic Engineering Draftsperson Required: No Accompanied by: Self / Same As Patient Allergies No Known Allergies Allergy (Verified 06/27/23 13:16) Medication List - Last Reconciled 06/27/23 by Yoko Francisco MD No Known Home Meds Tobacco use date assessed: 06/27/23 Dental Screening Dental Screen Date: 06/27/23 Did you have a dental visit in the last 12 months?: Yes Did you have a dental problem in the last 6 months where you did not have access to dental care?: No Was dental information given to patient?: Patient has dentist HPI HPI Comments History of Present Illness Details This is a 43-year-old male with morbid obesity, right shoulder osteoarthritis and tendinosis of right rotator cuff that comes today complaining of a lump in his abdomen in the right upper area. It is nontender and it bulges out when he is doing abdominal strenghtening exercises. He is morbid obesity with a BMI of 42.2 and was advised to diet and exercise. He still has right shoulder pain after being physical therapy. MRI shows tendinosis and osteoarthritis of right shoulder. Will be referred to Ortho. 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 1. Little interest or pleasure in doing things: not at all 2. Feeling down, depressed, or hopeless: not at all 3. Trouble falling or staying asleep, or sleeping too much: not at all 4. Feeling tired or having little energy: not at all 5. Poor appetite or overeating: not at all 6. Feeling bad about yourself - or that you are a failure or have let yourself or your family down: not at all 7. Trouble concentrating on things, such as reading the newspaper or watching television: not at all 8. Moving or speaking so slowly that other people could have noticed. Or the opposite - being so fidgety or restless that you have been moving around a lot more than usual: not at all 9. Thoughts that you would be better off or of hurting yourself in some way: not at all Total score: 0 Depression Screening Interpretation: Negative Depression Screening Done: Yes 33903 - PHQ-9 Billing: Yes Source: Developed by Drs. Emmett Jasso, Kia Goyal, Ruslan Edmonds and colleagues, with an educational dean from [employer]. Thrive Questionnaire Date Thrive assessed: 06/27/23 I am a: Patient What is your living situation today?: I have a steady place to live Within the past 12 months, did the food you bought not last and you didn't have the money to get more?: Never true Within the past 12 months, did you worry whether your food would run out before you got money to buy more?: Never true Do you have trouble paying for medicines?: No Do you have trouble getting transportation to medical appointments?: No Do you have trouble paying your heating and electricity bill?: No Do you have trouble taking care of your child, family member or friend?: No Do you have trouble with day-to-day activities such as bathing, preparing meals, shopping, managing finances, etc.?: No Are you currently unemployed and looking for a job?: No Are you interested in more education?: No Please select the resources that you would like help with: None Currently or been in a relationship where the following occur: no concerns reported THRIVE Score: 0 AUDIT C Alcohol Use Questionnaire (AUDIT-C) 1. How often do you have a drink containing alcohol?: Monthly or less 2. How many drinks containing alcohol do you have on a typical day when you are drinking?: 1 or 2 3. How often do you have six or more drinks on one occasion?: Never Total Score: 1 MARU-7 AMB Questionnaire MARU-7 Date MARU - 7 assessed: 06/27/23 Feeling nervous, anxious, or on edge: 0 = Not at all Not being able to stop or control worryin = Not at all Worrying too much about different things: 0 = Not at all Trouble relaxin = Not at all Being so restless that it is hard to sit still: 0 = Not at all Becoming easily annoyed or irritable: 0 = Not at all Feeling afraid as if something awful might happen: 0 = Not at all Total MARU-7 score (0-4 normal; 5-9 mild; 10-14 moderate; 15-21 severe): 0 Source: Developed by Drs. Emmett Jasso, Kia Goyal, Ruslan Edmonds and colleagues, with an educational dean from [employer]. MARU-7 Assessment Billing MARU-7 Assessment Tool: MARU-7 Assessment 25200 Review of Systems Const All systems reviewed & are unremarkable except as noted in HPI and below Eyes Reports no additional complaints, Denies change in vision and Denies other visual disturbances Card Denies chest pain at rest, Denies chest pain with activity, Denies edema, Denies irregular heart rhythm, Denies claudication, Denies dyspnea, Denies dyspnea on exertion, Denies orthopnea, Denies paroxysmal nocturnal dyspnea and Denies slow heart rate Resp Denies cough, Denies dyspnea and Denies dyspnea on exertion GI Denies abdominal pain, Denies change in bowel habits, Denies excessive flatus, Denies nausea and Denies vomiting Denies urinary hesitancy, Denies urinary incontinence and Denies urinary urgency Musc Denies abnormal gait, Denies atrophy, Denies deformity and Denies limited range of motion Skin/Breast Denies bleeding lesions, Denies changing lesions and Denies rash Neuro Denies abnormal gait, Denies behavioral changes and Denies lack of coordination Psych Denies behavioral changes Physical exam (Primary Care) Vital Signs: Last Vital Signs BP 130/82 06/27/23 12:58 BMI result Body Mass Index 42.2 Tobacco/Smoking Status: Tobacco use Status Tobacco use date assessed 06/27/23 06/27/23 13:05 Patient Tobacco Use Status Former Tobacco user 06/27/23 13:05 Tobacco use type Cigarette 06/27/23 13:05 e-Cigarette/Vaping Use Never Used 06/27/23 13:05 PHQ-9: PHQ-9 Score PHQ-9: Total score 0 06/27/23 13:17 Depression Screening Interpretation: Negative Thrive Assessment: Date of Thrive Assessment Date Thrive assessed 06/27/23 06/27/23 13:05 Currently or been in a relationship where the following occur: no concerns reported Eyes General: appearance normal, both eyes and all related structures Eyelids: Yes eyelids normal Conjunctivae: conjunctivae normal Neck Neck: Yes normal visual inspection and Yes supple Resp Effort & Inspection: normal respiratory effort Auscultation: clear to auscultation bilaterally Cardio Jugular venous distension: no JVD Rate: regular rate Rhythm: regular rhythm Heart sounds: S1 normal heart sound present and S2 normal heart sound present GI Other: Lump bulging out with certain movements in right upper quadrant Inspection: Yes normal to inspection Palpation (GI): Soft to palpation and nontender Auscultation: normal bowel sounds Extrem General: Yes full ROM Assessment and Plan Assessment & Plan (1) Morbid obesity: Code(s): E66.01 - Morbid (severe) obesity due to excess calories Plan: Start diet and exercise. BMI goal is less than 30. (2) Ventral hernia: Code(s): K43.9 - Ventral hernia without obstruction or gangrene Plan: Ultrasound of abdomen ordered. Rule out ventral hernia vs rectus diastasis (3) Tendinitis of right rotator cuff: Code(s): M75.81 - Other shoulder lesions, right shoulder Plan: Referred to Ortho. (4) Osteoarthritis of right shoulder: Code(s): M19.011 - Primary osteoarthritis, right shoulder Qualifiers: Osteoarthritis type: primary Qualified Code(s): M19.011 - Primary osteoarthritis, right shoulder Plan: Referred to Ortho. Orders: Orders US abdomen complete Today K43.9 - Ventral hernia without obstruction or gangrene Thyroid Stimulating Hormone Today E66.01 - Morbid (severe) obesity due to excess calories Lipid Panel Today E66.01 - Morbid (severe) obesity due to excess calories, E78.5 - Hyperlipidemia, unspecified Comprehensive [place]. Panel Fast Today E66.01 - Morbid (severe) obesity due to excess calories Complete Blood Count Auto Diff Today E66.01 - Morbid (severe) obesity due to excess calories Referrals Orthopedics Referral M19.011 - Primary osteoarthritis, right shoulder, M75.81 - Other shoulder lesions, right shoulder Coding Level of Care Code Est Pt Level 4 (86420) Diagnoses Morbid obesity E66.01 Ventral hernia K43.9 Tendinitis of right rotator cuff M75.81 Primary osteoarthritis of right shoulder M19.011 Osteoarthritis type: primary Additional Codes MARU-7 Assessment Billing - MARU-7 Assessment Tool: MARU-7 Assessment 35540 ([id number]) Time Spent (min) 23
[2023-06-27 12:58] VITALS: BP 130/82; BMI 42.2
== END 2023-06-27 13:27 | disposition home or self-care (01) ==
PROVIDERS: PCP Internal Medicine; Visit Provider Internal Medicine
DX: K43.9 Ventral hernia without obstruction or gangrene (principal); M75.81 Other shoulder lesions, right shoulder; E66.01 Morbid (severe) obesity due to excess calories; Z68.41 Body mass index [BMI] 40.0-44.9, adult; M19.011 Primary osteoarthritis, right shoulder
CPT/HCPCS: 99214

== ENCOUNTER 2023-07-10 12:33 | Outpatient (AMB) | payer OTHER, SELFPAY ==
--- NOTE | 2023-07-10 12:36 | MHC.OFFVIS ---
Intake Vital Signs 07/10/23 12:38 Height 5 ft 4 in Weight 230 lb BMI 39.5 BP 127/61 Blood Pressure Location Lt brachial Position Sitting Pulse 76 Intake Visit Reasons: S/P [place]; Dr. Gerardo Intake Note: Patient follow up Colonoscopy results Patient cc: acid reflex with burning sensation, LBP and denies any other GI issues. 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 Gerardo Tolerated procedure well Reviewed procedure report, pathology and recommendation Sessile serrated polyp-repeT COLO 5 YEARS AFDR-- BEGIN SCREEN @ 33 Y/O Appetite good Bowels normal- no N/V/D- abd. pain- fever or chills PFSH Medical History (Updated 07/10/23 @ 13:05 by Marychuy Johnson PA-C) Right shoulder pain Surgical History Hx of colonoscopy History of appendectomy Family History Mother Diabetes Father Diabetes H/O heart surgery Social History Household Members: Spouse Housing: Apartment Alcohol intake: current Alcohol intake frequency: a few times a month Alcohol type: beer and hard liquor Patient Tobacco Use Status: Former Tobacco user Quit Date: 2011 Tobacco use type: Cigarette e-Cigarette/Vaping Use: Never Used Second Hand Smoke Exposure: No service: No Current occupational status: employed 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 Current occupational exposures/hazards: No Cognitive needs: No Hearing needs: No Vision needs: No Review of Systems Const All systems reviewed & are unremarkable except as noted in HPI and below Card Denies chest pain and Denies dyspnea Resp Denies dyspnea GI Denies abdominal pain, Denies hematochezia, Denies constipation, Denies nausea and Denies vomiting Physical Exam Vital Signs: Last Vital Signs Pulse 76 07/10/23 12:38 BP 127/61 07/10/23 12:38 BMI result Body Mass Index 39.5 Const General: cooperative, healthy appearing, comfortable and no acute distress Orientation/consciousness: patient oriented x3 Limitations: language barrier Eyes Sclerae: sclerae normal Resp Effort & Inspection: normal respiratory effort and able to speak in complete sentences Skin General skin exam: no rashes or lesions noted Neuro General: patient oriented x3 Extrem General: Yes full ROM Psych Appearance: grossly normal and well kempt Mental Status: mental status grossly normal Speech and movement: Normal speech and movement present and Clear speech present Affect: normal affect Attitude: cooperative Thought process: Normal thought process present Thought content: Normal thought content present Insight: Good insight present (Psych) Judgement: Good judgement present (Psych) Assessment & Plan Assessment & Plan (1) Sessile serrated polyp of colon: Comment: reviewed procedure report, path, rec Code(s): D12.6 - Benign neoplasm of colon, unspecified Plan: Repeat colonoscopy- 5 years AFDR- begin screen at age 35 (2) Diverticulosis: Comment: HFD ER protocol Code(s): K57.90 - Diverticulosis of intestine, part unspecified, without perforation or abscess without bleeding Plan: ER protocol HFD (3) Hemorrhoids: Code(s): K64.9 - Unspecified hemorrhoids Plan 5 year recall colonoscopy Diverticulosis/diverticulitis ER protocol HFD Avoid straining All first-degree relatives should begin screening at age 35 Patient Instructions: 5 year recall colonoscopy Diverticulosis/diverticulitis ER protocol Maintain high-fiber diet Encouraged to call questions or concerns Coding Level of Care Code Est Pt Level 3 (04883) Diagnoses Sessile serrated polyp of colon D12.6 Diverticulosis K57.90 Hemorrhoids K64.9 Time Spent (min) [address]/medical [id number]
[2023-07-10 12:38] VITALS: BP 127/61; PULSE 76; BMI 39.5
== END 2023-07-10 13:26 | disposition home or self-care (01) ==
PROVIDERS: PCP Internal Medicine; Visit Provider Physician Assistant
DX: D12.6 Benign neoplasm of colon, unspecified (principal); K57.90 Diverticulosis of intestine, part unspecified, without perforation or abscess without bleeding; K64.9 Unspecified hemorrhoids
CPT/HCPCS: 99213

== ENCOUNTER → 2023-07-10 12:33 | Outpatient (BNVA) | payer OTHER, SELFPAY | PROVIDERS: PCP Internal Medicine; Visit Provider Physician Assistant | DX: D12.6 Benign neoplasm of colon, unspecified (principal); K57.90 Diverticulosis of intestine, part unspecified, without perforation or abscess without bleeding; K64.9 Unspecified hemorrhoids | CPT/HCPCS: 99212 ==

== ENCOUNTER 2023-07-19 07:45 | Outpatient (REF) | payer OTHER, SELFPAY ==
--- NOTE | ~2023-07-19 | US_ITS ---
EXAMINATION: US ABDOMEN LIMITED CLINICAL INFORMATION: Ventral hernia without obstruction or gangrene. COMPARISON: None available. TECHNIQUE: Real-time imaging of the region of concern in the right upper quadrant as indicated by the patient. FINDINGS: No discrete abnormality is seen in the area of clinical concern. No visible hernia. US/US abdomen limited IMPRESSION: No visible hernia.
== END 2023-07-19 07:46 | disposition home or self-care (01) ==
LOC: HO.US 07:45
PROVIDERS: PCP Internal Medicine; Visit Provider Internal Medicine
DX: K43.9 Ventral hernia without obstruction or gangrene (principal)
CPT/HCPCS: 76705

== ENCOUNTER 2023-10-02 14:56 | Outpatient (AMB) | payer OTHER, SELFPAY ==
[2023-10-02 15:00] VITALS: BP 120/82; BMI 41.5
--- NOTE | 2023-10-02 15:00 | A.OFFPC_ITS ---
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 He is morbidly obese with a BMI of 41.5 and is interested in a weight loss surgery. Last colonoscopy was 05/26/2023. Complains of right shoulder pain and some limitation in range of motion and would like to see ortho. No chest pain or shortness on breath. 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 How often do you have a drink containing alcohol?: Monthly or less 2. How many drinks containing alcohol do you have on a typical day when you are drinking?: 3 or 4 Total Score: 2 Score Reviewed/Action Taken: No MARU-7 AMB Questionnaire MARU-7 Date MARU - 7 assessed: 06/27/23 Source: Developed by Drs. Emmett Jasso, Kia Goyal, Ruslan Edmonds and colleagues, with an educational dean from [employer]. Review of Systems Const All systems reviewed & are unremarkable except as noted in HPI and below Card Denies chest pain at rest, Denies chest pain with activity, Denies edema, Denies irregular heart rhythm, Denies claudication, Denies dyspnea, Denies dyspnea on exertion, Denies orthopnea, Denies paroxysmal nocturnal dyspnea and Denies slow heart rate Resp Denies cough, Denies dyspnea and Denies dyspnea on exertion GI Denies abdominal pain, Denies change in bowel habits, Denies excessive flatus, Denies nausea and Denies vomiting Denies urinary hesitancy, Denies urinary incontinence and Denies urinary urgency Musc Denies abnormal gait, Denies atrophy, Denies deformity, Reports arthralgias and Denies limited range of motion Neuro Denies abnormal gait, Denies behavioral changes, Denies confusion and Denies lack of coordination Psych Denies behavioral changes and Denies confusion Physical exam (Primary Care) Vital Signs: Last Vital Signs BP 120/82 10/02/23 15:00 BMI result Body Mass Index 41.5 BMI Assessment/Plan discussion: High BMI High, discussed plan: lifestyle, weight reduction, dietary, physical activity and alcohol moderation Tobacco/Smoking Status: Tobacco use Status Tobacco use date assessed 06/27/23 10/02/23 15:01 Patient Tobacco Use Status Former Tobacco user 10/02/23 15:01 Tobacco use type Cigarette 10/02/23 15:01 e-Cigarette/Vaping Use Never Used 10/02/23 15:01 Thrive Assessment: Date of Thrive Assessment Date Thrive assessed 06/27/23 10/02/23 15:01 Const General: No confusion Orientation/consciousness: patient oriented x3 and No confusion HENMT Head: Yes normal to inspection, Yes normocephalic and Yes atraumatic Ears: external ears normal Eyes General: appearance normal, both eyes and all related structures Eyelids: Yes eyelids normal Conjunctivae: conjunctivae normal Neck Neck: Yes normal visual inspection and Yes supple Resp Effort & Inspection: normal respiratory effort Auscultation: clear to auscultation bilaterally Cardio Jugular venous distension: no JVD Rate: regular rate Rhythm: regular rhythm Heart sounds: S1 normal heart sound present and S2 normal heart sound present GI Inspection: Yes normal to inspection Palpation (GI): Soft to palpation and nontender Auscultation: normal bowel sounds Skin General skin exam: no rashes or lesions noted Neuro General: patient oriented x3, no focal motor deficits and No confusion Extrem General: Yes full ROM Right upper extremity: shoulder/upper arm Details: tenderness and abnormal ROM Details: pain with active ROM Details: in ABduction and in extension Psych Appearance: grossly normal Assessment and Plan Assessment & Plan (1) Physical exam: Code(s): Z00.00 - Encounter for general adult medical examination without abnormal findings Plan: Repeat in a year. (2) Morbid obesity: Code(s): E66.01 - Morbid (severe) obesity due to excess calories Plan: Referred to weight management. BMI goal is less than 30. Orders: Orders Comprehensive [facility]. Panel Fast Today Z00.00 - Encounter for general adult medical examination without abnormal findings Lipid Panel Today Z00.00 - Encounter for general adult medical examination without abnormal findings Referrals Medical Weight Management Referral E66.01 - Morbid (severe) obesity due to excess calories Orthopedics Referral M19.011 - Primary osteoarthritis, right shoulder Coding Level of Care Code Est Pt Prev Care 40-64y(86794) Diagnoses Physical exam Z00.00 Morbid obesity E66.01 Time Spent (min) 30
== END 2023-10-02 15:48 | disposition home or self-care (01) ==
PROVIDERS: PCP Internal Medicine; Visit Provider Internal Medicine
DX: Z00.00 Encounter for general adult medical examination without abnormal findings (principal); E66.01 Morbid (severe) obesity due to excess calories; Z68.41 Body mass index [BMI] 40.0-44.9, adult
CPT/HCPCS: 99396

== ENCOUNTER 2024-02-11 07:37 | Emergency (ER) | payer SELFPAY ==
--- NOTE | ~2024-02-11 | XR_ITS ---
EXAMINATION: XR CHEST CLINICAL INFORMATION: Cough, fever COMPARISON: Chest radiograph 05/31/2021 TECHNIQUE: 2 views of the chest were obtained. FINDINGS: Cardiomediastinal silhouette is normal. There is bronchial wall thickening with some patchy nodularity in the left upper lobe. No large effusion or pneumothorax. No acute osseous abnormalities. XR/XR chest 2V IMPRESSION: Bronchial wall thickening with some patchy nodularity in the left upper lobe. Findings may represent a small airways process such as asthma or atypical/viral infection. Electronically signed by: Emmett Julien MD 02/11/2024 08:47 AM EDT
[2024-02-11 07:51] VITALS: BP 125/76; PULSE 85; RESP 16; TEMP 36.9; O2SAT 96; BMI 41.2
[2024-02-11 08:15] LABS: COVID-19 Test Negative (Negative); IDNOW Serial# 08D9AD1C
--- NOTE | 2024-02-11 09:40 | ED_ITS ---
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 No travel or sick contacts. No recent therapy or work up for this. He came to get checked out. MD elicited complaint: fever and cough Pertinent past history: asthma Onset (ago): week(s) (3) Consistency: intermittent Severity: moderate Description of mucous: clear Able to tolerate fluids by mouth: Yes Exacerbating factors: other (coughing) Relieving factors: other (INH) Associated symptoms: fever, cough and shortness of breath Treatments prior to arrival: cold medicine and other (INH) Related Data Previous Rx's ?Medication ?Instructions ?Recorded doxycycline hyclate 100 mg capsule 100 mg PO BID 7 days #14 caps 02/11/24 ondansetron 4 mg disintegrating 4 mg PO Q8H PRN nausea and 02/11/24 tablet vomiting #20 tabs prednisone 20 mg tablet 40 mg (2 x 20 mg) PO DAILY 5 days 02/11/24 #10 tabs Allergies Allergy/AdvReac Type Severity Reaction Status Date / Time No Known Allergies Allergy Verified 02/11/24 07:52 Review of Systems Review of Systems: Constitutional : pos Fever, No Chills ENT/Mouth : No Hoarseness, No sore throat, No Rhinorrhea Eyes: No Redness, No Discharge, No Vision Changes Cardiovascular : No Chest Pain, positive SOB, positive Dyspnea on Exertion, No Edema Respiratory : positive Cough, pos Sputum, positive Wheezing, Gastrointestinal : No Nausea, No Vomiting, No Diarrhea, No abdominal Pain Genitourinary : No Dysuria, No Hematuria Musculoskeletal : No joint pain, No Myalgias Skin : No rash Neuro : No Weakness, No Numbness, No Headache Psych : No anxiety, depression Heme/Lymph: No Bruising, No Bleeding Endocrine : No Polyuria, No Polydipsia All other systems reviewed and are negative PMFSH Past Medical History Attestation statement: The following information was validated with the patient. Source: old records reviewed Medical History (Updated 02/11/24 @ 09:44 by Dasia Sandhu DO) History of asthma Right shoulder pain Surgical History Hx of colonoscopy History of appendectomy Family History Family History Mother Diabetes Father Diabetes H/O heart surgery Social History Social History Household Members: Spouse Housing: Apartment Alcohol intake: current Alcohol intake frequency: a few times a month Alcohol type: beer and hard liquor Patient Tobacco Use Status: Former Tobacco user Tobacco use type: Cigarette e-Cigarette/Vaping Use: Never Used Second Hand Smoke Exposure: No Advance Directives: No Advance Directives Information Provided: Yes service: No Current occupational status: employed 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 Oriented X3. No acute distress. Eyes: Pupils equal, round and reactive to light. ENT: Pharynx normal. Neck: Normal inspection. Neck supple. CVS: Normal heart rate and rhythm. Pulses normal. Respiratory: No respiratory distress. Breath sounds with some rhonchi noted anteriorly no distress noted Abdomen: Soft and nontender. Skin: Skin warm and dry. Normal skin color. Normal skin turgor. Extremities: No lower extremity edema. No calf ttp Neuro: Oriented X 3. No motor deficit. No sensory deficit. Medical Decision Making Medical Decision Making MDM Narrative: 43 yo male with PMH of asthma, bronchitis here with c/o URI x 3 weeks and then last night developed a fever - he has no resp distress he is not toxic at this time will obtain COVID swab and CXR - he is able to tolerate PO will likely treat for bronchitis. PO doxy and steroids ordered. Has INH at home he can use. Differential Diagnosis Differential Diagnoses: The differential diagnosis associated with the presentation includes asthma, bronchitis, pneumonia Admission/Observation Consideration of admission/observation: Escalation of care including admission/observation considered not toxic no hypoxia stable for outpatient therapy Lab Data MDM Lab Attestation statement: I reviewed the patient's lab results. Labs: Lab Results 02/11/24 Range/Units 07:56 COVID-19 (VILMA) Negative (Negative) COVID-19 Clin Com See Note Independent Interpretation I performed an independent interpretation of an: Plain X-Ray (abnormal finding on CXR DORI) Radiology Impression Discussion of test interpretation with radiology: I have reviewed the radiologist's reading. External Record Review External record reviewed: Outpatient record Prescription Management I considered prescription management with: Antibiotic and Other Discharge Plan Discharge Clinical Impression: Bronchitis Pneumonia Qualifiers: Pneumonia type: due to unspecified organism Laterality: left Lung location: upper lobe of lung Qualified Code(s): J18.9 - Pneumonia, unspecified organism Patient Disposition: Home, Self-Care Instructions: Acute Bronchitis (ED), Community Acquired Pneumonia (ED) Additional Instructions: negative for COVID chest xray shows small area left upper lung possible early pneumonia return for worsening symptoms or concerns take your inhaler for wheezing On doxycycline, do not take pills immediately before going to bed and swallow pills with plenty of water. Avoid direct sunlight, iron, antacids, and Pepto Bismol. Call your provider if you develop new ringing in your ears, new problems hearing, dizziness, difficulty swallowing, rash, abdominal discomfort, nausea, or diarrhea.? Prescriptions: New doxycycline hyclate 100 mg capsule 100 mg PO BID 7 Days Qty: 14 0RF prednisone 20 mg tablet 40 mg PO DAILY 5 Days Qty: 10 0RF ondansetron 4 mg tablet,disintegrating 4 mg PO Q8H PRN (Reason: nausea and vomiting) Qty: 20 0RF No Action Tenivac (PF) 5 Lf unit- 2 Lf unit/0.5mL suspension 0.5 ml IM ONCE Qty: 0.5 0RF Stand Alone Forms: Work/School Release Print Language: Vietnamese
[2024-02-11 09:49] VITALS: BP 125/76; PULSE 85; RESP 16; TEMP 36.9; O2SAT 96
== END 2024-02-11 09:50 | disposition home or self-care (01) ==
PROVIDERS: Emergency Provider Emergency Medicine; PCP Internal Medicine
DX: J18.9 Pneumonia, unspecified organism (principal); J40 Bronchitis, not specified as acute or chronic; R06.02 Shortness of breath; Z11.52 Encounter for screening for COVID-19
CPT/HCPCS: 71046; 87635; 99282; 99283

== ENCOUNTER 2024-06-16 10:48 | Outpatient (AMB) | payer BC, SELFPAY ==
--- NOTE | 2024-06-16 11:01 | A.OFFPC_ITS ---
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 [employer] Layout Required: Yes Accompanied by: Self / Same As Patient Allergies No Known Allergies Allergy (Verified 06/16/24 11:14) Medication List - Last Reconciled 06/16/24 by JAKUB Coleman doxycycline hyclate 100 mg PO BID 7 days ondansetron 4 mg PO Q8H PRN prednisone 40 mg (2 x 20 mg) PO DAILY 5 days Tobacco use date assessed: 06/16/24 Dental Screening Dental Screen Date: 06/16/24 Did you have a dental visit in the last 12 months?: No Did you have a dental problem in the last 6 months where you did not have access to dental care?: No Was dental information given to patient?: Patient has dentist HPI RT shoulder pain HPI Details The patient is a 44-year-old male with significant past medical history of tendintis of right rotator cuff, osteoarthritis of right shoulder Patient is presenting today complaints of shoulder pain Reports that it has been ongoing. Per note, the patient was seeing orthopedics in 2022 for similar concerns. Reports that he did not follow up with Orthopedics because he lost his insurance at the time. The patient had an MRI done in 06/26/2023: 1. Mild supraspinatus tendinosis with an terior articular surface fraying/partial tearing measuring 0.9 x 0.5 cm. Mild subscapularis tendinosis with distal articular surface partial tearing measuring 1.0 cm in ML dimension. No full-thickness rotator cuff tendon tear. Moderate teres minor muscle atrophy with mild edema. 2. Moderate acromioclavicular osteoarthr itis and small joint effusion. 3. Severe glenohumeral osteoarthritis wi th chronic posterior subluxation of the humeral head. Small joint effusion with synovitis. Loose bodies within the subcoracoid recess measuring up to 1.6 cm. 4. Diffuse complex degenerative tearing of the glenoid labrum. Patient continued to positive range of motion in right arm, no focal weakness noted Complain of pain at posterior glenohumeral joint area with cross-arm test Negative empty can test, no swelling or discoloration noted. Discussed with patient that he already has a relationship with Orthopedics and should follow up with with them to see what his options are Meloxicam 15 mg ordered daily for pain PFSH Medical History History of asthma Right shoulder pain Surgical History Hx of colonoscopy History of appendectomy Family History Mother Diabetes Father Diabetes H/O heart surgery Social History Household Members: Spouse Housing: Apartment Alcohol intake: current Alcohol intake frequency: a few times a month Alcohol type: beer and hard liquor Patient Tobacco Use Status: Former Tobacco user Tobacco use type: Cigarette e-Cigarette/Vaping Use: Never Used Second Hand Smoke Exposure: No service: No Current occupational status: employed 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 1. Little interest or pleasure in doing things: not at all 2. Feeling down, depressed, or hopeless: not at all 3. Trouble falling or staying asleep, or sleeping too much: not at all 4. Feeling tired or having little energy: not at all 5. Poor appetite or overeating: not at all 6. Feeling bad about yourself - or that you are a failure or have let yourself or your family down: not at all 7. Trouble concentrating on things, such as reading the newspaper or watching television: not at all 8. Moving or speaking so slowly that other people could have noticed. Or the opposite - being so fidgety or restless that you have been moving around a lot more than usual: not at all 9. Thoughts that you would be better off or of hurting yourself in some way: not at all Total score: 0 Depression Screening Interpretation: Negative Depression Screening Done: Yes 84487 - PHQ-9 Billing: Yes Source: Developed by Drs. Emmett Jasso, Ruslan Miramontes and colleagues, with an educational dean from [employer]. Thrive Questionnaire Date Thrive assessed: 06/16/24 I am a: Patient What is your living situation today?: I have a steady place to live Within the past 12 months, did the food you bought not last and you didn't have the money to get more?: Never true Within the past 12 months, did you worry whether your food would run out before you got money to buy more?: Never true Do you have trouble paying for medicines?: No Do you have trouble getting transportation to medical appointments?: No Do you have trouble paying your heating and electricity bill?: No Do you have trouble taking care of your child, family member or friend?: No Do you have trouble with day-to-day activities such as bathing, preparing meals, shopping, managing finances, etc.?: No Are you currently unemployed and looking for a job?: No Are you interested in more education?: No Please select the resources that you would like help with: None Currently or been in a relationship where the following occur: No concerns reported THRIVE Score: 0 AUDIT C Alcohol Use Questionnaire (AUDIT-C) 1. How often do you have a drink containing alcohol?: Monthly or less 2. How many drinks containing alcohol do you have on a typical day when you are drinking?: 3 or 4 Total Score: 2 Score Reviewed/Action Taken: No MARU-7 AMB Questionnaire MARU-7 Date MARU - 7 assessed: 06/16/24 Feeling nervous, anxious, or on edge: 0 = Not at all Not being able to stop or control worryin = Not at all Worrying too much about different things: 0 = Not at all Trouble relaxin = Not at all Being so restless that it is hard to sit still: 0 = Not at all Becoming easily annoyed or irritable: 0 = Not at all Feeling afraid as if something awful might happen: 0 = Not at all Total MARU-7 score (0-4 normal; 5-9 mild; 10-14 moderate; 15-21 severe): 0 Source: Developed by Drs. Emmett Jasso, uRslan Miramontes and colleagues, with an educational dean from [employer]. MARU-7 Assessment Billing MARU-7 Assessment Tool: MARU-7 Assessment 93995 Review of Systems Const Details: Denies chills, Denies fatigue, Denies fever(s), Denies headache(s) and Denies weakness HEENT Denies change in vision, Denies dizziness, Denies headache(s), Denies hearing loss, Denies nasal congestion, Denies sinus pain, Denies sinus pressure and Denies sore throat Card Denies chest pain, Denies lightheadedness, Denies dyspnea and Denies other (palpitations) Resp Denies cough, Denies dyspnea and Denies wheezing GI Denies abdominal pain, Denies melena, Denies hematochezia, Denies change in bowel habits, Denies dyspepsia and Denies nausea Denies hematuria and Denies dysuria Musc Denies abnormal gait, Denies myalgias, + arthralgias (ongoing right shoulder pain), Denies numbness and Denies tingling Skin/Breast Denies rash, Denies unusual bruising and Denies wounds Neuro Denies abnormal gait, Denies dizziness, Denies headache(s), Denies memory loss, Denies numbness, Denies Sensory deficit (Neuro), Denies tingling and Denies weakness Psych Denies anxiety, Denies depression and Denies memory loss Endo Denies cold intolerance, Denies fatigue, Denies heat intolerance, Denies polydipsia and Denies polyuria Harvey/Lymph Denies easy bleeding and Denies easy bruising Aller/Immun Denies wheezing Physical exam (Primary Care) Vital Signs: Last Vital Signs Pulse 61 06/16/24 11:02 BP 110/60 06/16/24 11:02 Pulse Ox 97 06/16/24 11:02 Oxygen Delivery Method Room Air 06/16/24 11:02 BMI result Body Mass Index 41.2 Tobacco/Smoking Status: Tobacco use Status Tobacco use date assessed 06/16/24 06/16/24 11:08 Patient Tobacco Use Status Former Tobacco user 06/16/24 11:08 Tobacco use type Cigarette 06/16/24 11:08 e-Cigarette/Vaping Use Never Used 06/16/24 11:08 PHQ-9: PHQ-9 Score PHQ-9: Total score 0 06/16/24 11:09 Depression Screening Interpretation: Negative Thrive Assessment: Date of Thrive Assessment Date Thrive assessed 06/16/24 06/16/24 11:08 Currently or been in a relationship where the following occur: No concerns reported Const Other: General: no acute distress, well developed, alert and awake Nutritional Appearance: well nourished Orientation/consciousness: patient oriented x3 [facility] Head: Yes normocephalic and Yes atraumatic Mouth: Normal oral and palatal mucosa present and moist mucous membranes Eyes Pupils: Equal, round and reactive pupils present and Pupil accommodation reflex normal EOM: EOMs intact bilaterally Resp Effort & Inspection: normal respiratory effort Auscultation: clear to auscultation bilaterally Cardio Rate: regular rate Rhythm: regular rhythm Heart sounds: S1 normal heart sound present, S2 normal heart sound present, no gallops, no murmurs and no rubs GI Palpation (GI): Abdomen is soft and nontender to palpation Auscultation: normal bowel sounds General: Yes no CVA tenderness Back/Spine/Pelvis Back: no CVA tenderness Cervical Spine: cervical ROM normal and No Cervical spine tenderness Thoracic/Lumbar Spine: thoraco-lumbar ROM normal, No pain with thoraco-lumbar ROM, No thoracic spinal tenderness and No lumbar spinal tenderness right shoulder: pain to posterior right glenohumeral joint with arm cross test Skin General: warm and dry. Normal skin color. Normal skin turgor Lesions: no lesions Nails: normal Neuro General: patient oriented x3, gait normal Cranial nerves: Yes Equal, round and reactive pupils present Cognition (Neuro): normal cognition Gait exam (Neuro): Normal gait present Motor exam (neuro): 5/5 motor strength present throughout Extrem General: Yes normal to inspection, No edema and No calf tenderness Coding Level of Care Code Est Pt Level 3 (54367) Diagnoses Chronic right shoulder pain M25.511; G89.29 Chronicity: chronic Additional Codes PHQ-9 - 46777 - PHQ-9 Billing: Yes ([id number]) MARU-7 Assessment Billing - MARU-7 Assessment Tool: MARU-7 Assessment 96622 ([id number]) Assessment & Plan Assessment & Plan (1) Right shoulder pain: Code(s): M25.511 - Pain in right shoulder Category: Medical Qualifiers: Chronicity: chronic Qualified Code(s): M25.511 - Pain in right shoulder; G89.29 - Other chronic pain Plan: Patient continued to positive range of motion in right arm, no focal weakness noted Complain of pain at posterior glenohumeral joint area with cross-arm test Negative empty can test, no swelling or discoloration noted. Discussed with patient that he already has a relationship with Orthopedics and should follow up with with them to see what his options are .Meloxicam 15 mg daily ordered-discussed with patient that he could use Tylenol p.r.n. but is unable to take any other NSAIDs Medications: New meloxicam 15 mg PO DAILY 30 tabs 3RF
[2024-06-16 11:02] VITALS: BP 110/60; PULSE 61; O2SAT 97; BMI 41.2
== END 2024-06-16 11:30 | disposition home or self-care (01) ==
PROVIDERS: PCP Internal Medicine
DX: M25.511 Pain in right shoulder (principal); G89.29 Other chronic pain

== ENCOUNTER → 2024-06-16 10:48 | Outpatient (BNVA) | payer BC, SELFPAY | PROVIDERS: PCP Internal Medicine | DX: M25.511 Pain in right shoulder (principal); G89.29 Other chronic pain | CPT/HCPCS: 96127 ==

== ENCOUNTER 2024-07-30 11:22 | Outpatient (REF) | payer BC, SELFPAY ==
--- NOTE | ~2024-07-30 | XR_ITS ---
EXAMINATION: XR SHOULDER 2 OR MORE VIEWS RIGHT HISTORY: M25.511 - Pain in right shoulder COMPARISON: Comparison is made with the prior examination dated 09/02/2022. FINDINGS: Three views of the right shoulder are submitted. Osseous mineralization is normal. There is no fracture or dislocation. Again seen is severe osteoarthritis of the glenohumeral joint, with joint space narrowing and osteophyte formation. There is mild osteoarthritis of the AC joint. The soft tissues are unremarkable. XR/XR shoulder RT min 2V IMPRESSION: Severe osteoarthritis of the glenohumeral joint. Electronically signed by: Emmett Yanez MD 07/30/2024 03:42 PM EDT
== END 2024-07-30 11:23 | disposition home or self-care (01) ==
LOC: HO.HOSX 11:22
PROVIDERS: Visit Provider Physician Assistant
DX: M19.011 Primary osteoarthritis, right shoulder (principal)
CPT/HCPCS: 73030

== ENCOUNTER 2024-07-30 11:27 | Outpatient (AMB) | payer BC, SELFPAY ==
--- NOTE | 2024-07-30 11:36 | A.OFFVIS_ITS ---
Vital Signs 07/30/24 11:40 Height 5 ft 4 in Weight 240 lb BMI 41.2 Intake Visit Reasons: OV-RT shoulder pain OA f/u Intake Note: Surjit 42 year old right hand dominant male who presents today for a follow up of right shoulder. Patient was given an injection on 02/26/23 and had only provided him with 2 weeks of relief. He recently had an MRI and would like to discuss results and treatment. Patient states he had to stop going to PT due to insurance problems. Patient would like to be referred again. Certified Social Workers In Health Care Required: Yes Certified Social Workers In Health Care Language: Multimedia Services Coordinator Services: Certified Social Workers In Health Care Present Certified Social Workers In Health Care Name: BoboMOHSEN/MARÍA Allergies No Known Allergies Allergy (Verified 07/30/24 11:38) HPI HPI OV-RT shoulder pain OA f/u: Details: 44-year-old gentleman presents to the office today for right shoulder pain. Pain has been ongoing for several years. He saw me back in 2022 where he had injections and was diagnosed with arthritis. He had an MRI in 2023 which was significant for arthritis along with some degenerative changes of the rotator cuff. He continues to have discomfort with reaching and lifting activities. States the pain is worse when he is sleeping at night. 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 Current occupational exposures/hazards: No Cognitive needs: No Hearing needs: No Vision needs: No Review of Systems Const All systems reviewed & are unremarkable except as noted in HPI and below Physical Exam Vital Signs: BMI result Body Mass Index 41.2 Const General: cooperative, healthy appearing, comfortable, no acute distress, well developed and alert Orientation/consciousness: patient oriented x3 HEENT Head: Yes normal to inspection, Yes normocephalic and Yes atraumatic Eyes General: appearance normal, both eyes and all related structures Resp Effort & Inspection: normal respiratory effort and able to speak in complete sentences Cardio Rate: regular rate Peripheral pulses: Peripheral pulses 2+ throughout GI Palpation (GI): Soft to palpation Skin Lesions: no lesions Rashes: no rashes Neuro General: patient oriented x3 Extrem Other: Right shoulder normal to inspection. Tenderness over the bicipital groove and along the deltoid region of the shoulder. Forward flexion to 100, external rotation to 90, internal rotation to S1. Mild pain with RTC strength testing. Positive Brock and Portage's. NVI. Results Reviewed Results Reviewed: X-rays of the right shoulder obtained in the office today show severe glenohumeral joint arthritis with osteophyte formation Assessment & Plan Assessment & Plan (1) Osteoarthritis of right glenohumeral joint: Code(s): M19.011 - Primary osteoarthritis, right shoulder Category: Medical Plan: We discussed options today which include physical therapy and steroid injections. He would like to proceed with an injection. I offered him a glenohumeral joint injection which will be done under fluoroscopy in the hospital. We will contact him to schedule this appointment. If symptoms persist or worsen and his function becomes completely limited he will contact us to discuss further options otherwise follow up as needed. Orders: Orders XR shoulder RT min 2V Today M25.511 - Pain in right shoulder FL Guided Asp Inj Major Jt RT Today M19.011 - Primary osteoarthritis, right shoulder Coding Level of Care Code Est Pt Level 3 (33742) Complex EM visit Add On G2211 Diagnoses Osteoarthritis of right glenohumeral joint M19.011
[2024-07-30 11:40] VITALS: BMI 41.2
== END 2024-07-30 12:56 | disposition home or self-care (01) ==
LOC: HO.HOS 11:28
PROVIDERS: PCP Internal Medicine; Visit Provider Physician Assistant
DX: M19.011 Primary osteoarthritis, right shoulder (principal)
CPT/HCPCS: 99213

== ENCOUNTER → 2024-07-30 11:29 | Outpatient (BNV) | payer BC, SELFPAY | PROVIDERS: Visit Provider Radiology Diagnostic Radiology | DX: M19.011 Primary osteoarthritis, right shoulder (principal) | CPT/HCPCS: 73030 ==

== ENCOUNTER 2024-08-27 12:56 | Outpatient (REF) | payer BC, SELFPAY ==
--- NOTE | ~2024-08-27 | FL_ITS ---
EXAMINATION: Fluoroscopy guided right shoulder steroid injection. CLINICAL INDICATION: Right shoulder pain. Osteoarthritis. TECHNIQUE: Following explaining fluoroscopy-guided right shoulder injection procedure, benefits and risk, a written consent was obtained. 1% lidocaine was injected at puncture site. A 22-gauge spinal needle was then inserted from the skin into the joint space and 2 mL of nonionic contrast was injected and single image obtained. Subsequently 4 mL of 1% lidocaine, 4 mL of 0.25% bupivacaine and 80 mg Depo-Medrol was injected as combination needle withdrawn. Complete hemostasis achieved at puncture site. Sterile dressing applied post procedure. FINDINGS: There is moderate loss of right glenohumeral joint space with moderate inferior periarticular spurring. Also visualizes loss of AC joint space with inferior acromial spurring and periarticular AC joint spurring. There is intra-articular contrast seen on arthrogram. There is successful steroid injection noted. FL/FL Guided Asp Inj Major Jt RT IMPRESSION: Successful fluoroscopy-guided right shoulder steroid injection. Electronically signed by: Bryant Barboza MD 09/01/2024 07:28 AM EDT
[2024-08-27] MEDS: BUPivacaine MPF 0.25 % 30 ML VIAL 15 ML SUBCUT (13:36)
[2024-08-27] MEDS: methylPREDNISolone acetate 80 MG VIAL INTRAARTIC (13:39)
[2024-08-27] MEDS: iohexoL 300 MG/ML 50 ML INFUS..BTL INTRAARTIC (13:40)
== END 2024-08-27 12:57 | disposition home or self-care (01) ==
LOC: HO.XRAY 12:56
PROVIDERS: PCP Internal Medicine; Visit Provider Physician Assistant
DX: M19.011 Primary osteoarthritis, right shoulder (principal)
CPT/HCPCS: 20610; 77002; J0665; J1010; Q9967

== ENCOUNTER → 2024-08-27 12:58 | Outpatient (BNV) | payer BC, SELFPAY | PROVIDERS: PCP Internal Medicine; Visit Provider Radiology Diagnostic Radiology | DX: M25.511 Pain in right shoulder (principal) | CPT/HCPCS: 20610; 77002 ==

== ENCOUNTER 2024-10-06 14:16 | Outpatient (AMB) | payer BC, SELFPAY ==
--- NOTE | 2024-10-06 14:19 | A.OFFPC_ITS ---
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 During the encounter, it was acknowledged that the patient has a history of morbid obesity with a height of 5'4 and a weight of 242 pounds. This condition was identified as posing potential health difficulties, including cardiovascular risk. Despite the patient's significant obesity, no specific weight loss interventions or surgical consultations were previously pursued. Additionally, the patient has previously been diagnosed with arthritis, which remains a source of physical discomfort. The onset and duration of arthritis remain unspecified, but the patient reports trauma-related aggravation and has managed symptoms primarily through meloxicam, utilized as needed. The patient has yet to consult an regulatory specialist for his arthritis-related concerns. The patient denied any history of medication allergies and confirmed intermittent use of meloxicam. There is a relevant history of appendectomy, but the timeline was not specified. The family medical history indicates both parents are alive and have diabetes, but there is no reported family history of cancer. The patient has a significant past history of smoking, with cessation documented some time ago, and admits to consuming alcohol occasionally, approximately once a month at moderate levels. - Tetanus vaccination discussion, with n o recent administration. Patient declined the offer for the current visit. - Emphasis on cholesterol and glucose le leanne monitoring through laboratory tests, scheduled with an 8-hour fasting requirement. 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 1. Little interest or pleasure in doing things: not at all 2. Feeling down, depressed, or hopeless: not at all 3. Trouble falling or staying asleep, or sleeping too much: not at all 4. Feeling tired or having little energy: several days 5. Poor appetite or overeating: not at all 6. Feeling bad about yourself - or that you are a failure or have let yourself or your family down: not at all 7. Trouble concentrating on things, such as reading the newspaper or watching television: several days 8. Moving or speaking so slowly that other people could have noticed. Or the opposite - being so fidgety or restless that you have been moving around a lot more than usual: not at all 9. Thoughts that you would be better off or of hurting yourself in some way: not at all Total score: 2 Depression Screening Interpretation: Positive Depression Screening Follow-up: Existing condition and Follow-up Visit Requested Depression Screening Done: Yes 16931 - PHQ-9 Billing: Yes Source: Developed by Drs. Emmett Jasso, Kia Goyal, Ruslan Edmonds and colleagues, with an educational dean from [employer]. Thrive Questionnaire Date Thrive assessed: 10/06/24 I am a: Patient What is your living situation today?: I choose not to answer this question Within the past 12 months, did the food you bought not last and you didn't have the money to get more?: Sometimes True Within the past 12 months, did you worry whether your food would run out before you got money to buy more?: Sometimes True Do you have trouble paying for medicines?: No Do you have trouble getting transportation to medical appointments?: No Do you have trouble paying your heating and electricity bill?: No Do you have trouble taking care of your child, family member or friend?: No Do you have trouble with day-to-day activities such as bathing, preparing meals, shopping, managing finances, etc.?: No Are you currently unemployed and looking for a job?: No Are you interested in more education?: No Please select the resources that you would like help with: Food Currently or been in a relationship where the following occur: I choose not to answer THRIVE Score: 2 AUDIT C Alcohol Use Questionnaire (AUDIT-C) 1. How often do you have a drink containing alcohol?: Monthly or less 2. How many drinks containing alcohol do you have on a typical day when you are drinking?: 3 or 4 3. How often do you have six or more drinks on one occasion?: Never Total Score: 2 Score Reviewed/Action Taken: No MARU-7 AMB Questionnaire MARU-7 Date MARU - 7 assessed: 10/06/24 Feeling nervous, anxious, or on edge: 0 = Not at all Not being able to stop or control worryin = Not at all Worrying too much about different things: 0 = Not at all Trouble relaxin = Not at all Being so restless that it is hard to sit still: 0 = Not at all Becoming easily annoyed or irritable: 0 = Not at all Feeling afraid as if something awful might happen: 0 = Not at all Total MARU-7 score (0-4 normal; 5-9 mild; 10-14 moderate; 15-21 severe): 0 Source: Developed by Drs. Emmett Jasso, Kia Goyal, Ruslan Edmonds and colleagues, with an educational dean from [employer]. MARU-7 Assessment Billing MAUR-7 Assessment Tool: MARU-7 Assessment 21451 Review of Systems Const All systems reviewed & are unremarkable except as noted in HPI and below Card Denies chest pain at rest, Denies chest pain with activity, Denies edema, Denies irregular heart rhythm, Denies claudication, Denies dyspnea, Denies dyspnea on exertion, Denies orthopnea, Denies paroxysmal nocturnal dyspnea and Denies slow heart rate Resp Denies cough, Denies dyspnea and Denies dyspnea on exertion GI Denies abdominal pain, Denies change in bowel habits, Denies excessive flatus, Denies nausea and Denies vomiting Denies urinary hesitancy, Denies urinary incontinence and Denies urinary urgency Musc Denies abnormal gait, Denies atrophy, Denies deformity and Denies limited range of motion Skin/Breast Denies bleeding lesions, Denies changing lesions and Denies rash Neuro Denies abnormal gait and Denies lack of coordination Physical exam (Primary Care) Vital Signs: Last Vital Signs BP 122/78 10/06/24 14:20 BMI result Body Mass Index 41.5 BMI Assessment/Plan discussion: High BMI High, discussed plan: lifestyle, weight reduction, dietary and physical activity Tobacco/Smoking Status: Tobacco use Status Tobacco use date assessed 06/16/24 10/06/24 14:25 Patient Tobacco Use Status Former Tobacco user 10/06/24 14:25 Tobacco use type Cigarette 10/06/24 14:25 e-Cigarette/Vaping Use Never Used 10/06/24 14:25 PHQ-9: PHQ-9 Score PHQ-9: Total score 2 10/06/24 14:38 Depression Screening Interpretation: Positive Depression Screening Follow-up: Existing condition and Follow-up Visit Requested Thrive Assessment: Date of Thrive Assessment Date Thrive assessed 10/06/24 10/06/24 14:25 Currently or been in a relationship where the following occur: I choose not to answer [facility] Head: Yes normal to inspection, Yes normocephalic and Yes atraumatic Ears: external ears normal Eyes General: appearance normal, both eyes and all related structures Eyelids: Yes eyelids normal Conjunctivae: conjunctivae normal Neck Neck: Yes normal visual inspection and Yes supple Resp Effort & Inspection: normal respiratory effort Auscultation: clear to auscultation bilaterally Cardio Jugular venous distension: no JVD Rate: regular rate Rhythm: regular rhythm Heart sounds: S1 normal heart sound present and S2 normal heart sound present GI Inspection: Yes normal to inspection Palpation (GI): Soft to palpation and nontender Auscultation: normal bowel sounds Skin General skin exam: no rashes or lesions noted Neuro General: no focal motor deficits Extrem General: Yes full ROM Psych Appearance: grossly normal Immunizations Boostrix Tdap 2.5 Lf unit-8 mcg-5 Lf/0.5 mL intramuscular syringe Performing Provider: Yoko Francisco MD [facility] Administered by: MOHSEN Eason on 10/06/24 14:45 Dose Route Admin Location Dispensed Lot Number Expiration Date [employer] 0.5 mL IM Left Deltoid 0.5 mL [id number] 01/02/27 [id number] [employer] VIS Given Date VIS Provided VIS Publication Date 10/06/24 Single Vaccine 24 Eligibility Eligibility Date Funding Source Not [facility] Eligible 10/06/24 Private Coding Level of Care Code Est Pt Prev Care 40-64y(59580) Diagnoses Physical exam Z00.00 Morbid obesity E66.01 Additional Codes PHQ-9 - 42762 - PHQ-9 Billing: Yes ([id number]) MARU-7 Assessment Billing - MARU-7 Assessment Tool: MARU-7 Assessment 72258 ([id number]) Time Spent (min) 30 Assessment & Plan Assessment & Plan (1) Physical exam: Code(s): Z00.00 - Encounter for general adult medical examination without abnormal findings Category: Medical (2) Morbid obesity: Code(s): E66.01 - Morbid (severe) obesity due to excess calories Category: Medical Plan Today's consultation was tailored towards preventive health, addressing the patient's obesity, arthritis, and musculoskeletal ailments like scoliosis. The obesity was acknowledged as contributing to a spectrum of health risks, emphasizing the importance of weight management and potential surgical considerations. The patient's arthritis continues to be managed with meloxicam as needed, though he was encouraged to consider an orthopedic evaluation due to persistent discomfort. The impending cholesterol and glucose fasting tests are a priority, given the familial predisposition towards diabetes, ensuring numbers remain optimal or inform necessary adjustments. The offer for a recent Tetanus vaccination was respectfully declined by the patient during this session. Patient was informed and verbally consented to the use of an ambient scribe for clinic note documentation during this visit. I discussed with the patient the implications of his morbid obesity, emphasizing the link between excess weight and various health complications, particularly cardiovascular risks. We explored weight management strategies and discussed introducing potential surgical interventions if non-surgical methods prove inadequate. Concerning his arthritis, I reiterated the significance of continuing meloxicam therapy as needed and proposed orthopedic consultation to further address ongoing musculoskeletal concerns. I explained the necessity of periodic cholesterol and glucose level evaluation in context with diabetes in his family history. We went over past vaccination history specifically pertaining to the Tetanus vaccine; while it is due, the decision to upgrade it was postponed as per the patient's choice. Orders: Orders Comprehensive [place]. Panel Fast Today E66.01 - Morbid (severe) obesity due to excess calories TDaP Immunization Today Z23 - Encounter for immunization Lipid Panel Today E66.01 - Morbid (severe) obesity due to excess calories, E78.5 - Hyperlipidemia, unspecified Medications: New Boostrix Tdap (diphth,pertus(acell),tetanus) 0.5 mL IM ONCE 0.5 mL 0RF NS Z23 - Encounter for immunization Patient Instructions: - Follow the diet and weight management plan discussed; consider potential surgical options if necessary. - Continue meloxicam for arthritis symptoms as prescribed. - Schedule and complete fasting labs for cholesterol and glucose as directed. - Consider consulting an regulatory specialist for arthritis-related issues. - Consider Tetanus vaccination at a future appointment when convenient.
[2024-10-06 14:20] VITALS: BP 122/78; BMI 41.5
== END 2024-10-06 14:50 | disposition home or self-care (01) ==
LOC: HO.HMCH 14:17
PROVIDERS: PCP Internal Medicine; Visit Provider Internal Medicine
DX: Z00.00 Encounter for general adult medical examination without abnormal findings (principal); E66.01 Morbid (severe) obesity due to excess calories; Z68.41 Body mass index [BMI] 40.0-44.9, adult; Z23 Encounter for immunization

== ENCOUNTER → 2024-10-06 14:16 | Outpatient (BNVA) | payer BC, SELFPAY | PROVIDERS: PCP Internal Medicine; Visit Provider Internal Medicine | DX: Z00.00 Encounter for general adult medical examination without abnormal findings (principal); E66.01 Morbid (severe) obesity due to excess calories; E78.5 Hyperlipidemia, unspecified; Z68.41 Body mass index [BMI] 40.0-44.9, adult; Z23 Encounter for immunization | CPT/HCPCS: 90471; 90715; 96127 ==